=== PATIENT | female | born 1975 | race Hispanic/Latino ===

== ENCOUNTER 2024-03-28 09:38 | Emergency (ER) | payer SELFPAY ==
[~2024-03-28] VITALS: Ht 162.6 cm; Wt 102.5 kg
[~2024-03-28 09:38] MED LIST: PREN1TAB89 PO
--- NOTE | 2024-03-28 10:33 | EKG ---
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
--- NOTE | 2024-03-28 10:40 | ERN ---
ED Note History of Present Illness Stated Complaint: COUGH, PAINFUL RESP X 2 DAYS Chief Complaint: Cough Time Seen by MD: 10:05 Dictation: PATIENT IS A 49-YEAR-OLD FEMALE HERE WITH COMPLAINTS OF RIGHT LATERAL INFERIOR CHEST WALL PAIN TENDERNESS WORSE WITH COUGH OR INSPIRATION/PALPATION FOR 7-10 DAYS. NO FEVER NO CHILLS NO BACK PAIN DENIES ANY HISTORY OF CAD DIABETES HYPERTENSION. NO PRIMARY CARE DOCTOR AND HAS TAKEN NOTHING PRIOR TO ARRIVAL FOR PAIN. Allergies: Coded Allergies: No Known Allergies (Unverified Allergy, Unknown, 08/13/15) Home Meds Active Scripts Ibuprofen (Ibuprofen 800 mg Tab) 800 Mg Tab, 800 MG PO Q8H PRN for fever or pain, #30 TAB 0 Refills Prov:ISMAEL SIFUENTES NP 03/28/24 Benzonatate (Tessalon Perles) 100 Mg Cap, 1 CAP PO TID for cough for 10 Days, #30 CAP 0 Refills Prov:ISMAEL SIFUENTES NP 03/28/24 Methylprednisolone (Medrol) 4 Mg Tab.ds.pk, 1 TAB PO AD for 6 Days, #21 TAB 0 Refills 6 on day 1 then reduce by one tablet daily until gone Prov:ISMAEL SIFUENTES NP 03/28/24 Reported Medications Vit W-Ca,Fe,FA(<1 mg) ( Vitamins) 1 Each Tablet, 1 EACH PO DAILYLUNCH, TAB 08/13/15 Past Medical History Past Medical History: No Pertinent History Surgical History: Cholecystectomy History: Not Applicable : 7 Para: 6 Aborts: 1 RN Note Reviewed/Agreed w/PFSH: Yes Review of System Dictation CONSTITUTIONAL: NEGATIVE EXCEPT FOR HPI HEAD/FACE: NEGATIVE EXCEPT FOR HPI EENT: NEGATIVE EXCEPT FOR HPI RESPIRATORY: NEGATIVE EXCEPT FOR HPI RIGHT LATERAL INFERIOR CHEST WALL PAIN TENDERNESS WITH COUGH GASTROINTESTINAL/ABDOMINAL: NEGATIVE EXCEPT FOR HPI GENITOURINARY: NEGATIVE EXCEPT FOR HPI MUSCULOSKELETAL: NEGATIVE EXCEPT FOR HPI INTEGUMENTARY: NEGATIVE EXCEPT FOR HPI NEUROLOGICAL/PSYCH: NEGATIVE EXCEPT FOR HPI HEMATOLOGIC/LYMPHATIC: NEGATIVE EXCEPT FOR HPI ALL SYSTEMS NEGATIVE, EXCEPT NOTED ABOVE. 13 POINT REVIEW OF SYSTEMS ASSESSED AND ALL NEGATIVE EXCEPT FOR ABOVE. Initial Vital Sign VS Vital Signs Date Time Temp Pulse Resp B/P (MAP) Pulse Ox O2 Delivery O2 Flow Rate FiO2 03/28/24 09:40 99.3 110 20 137/86 99 Room Air 0 03/28/24 13:02 21 Physical Exam Dictation VITAL SIGNS REVIEWED GENERAL APPEARANCE: ALERT, ORIENTED X 3, MODERATE ACUTE DISTRESS, WELL DEVELOPED, NOURISHED. HEAD AND FACE: NON-TRAUMATIC. EYES: PERRL, PINK CONJUNCTIVAS, EYELID NO TRAUMA, ANTERIOR CHAMBER WITH ARCUS SENILIS. EARS: PINNAS INTACT AND NO SIGNS OF TRAUMA OR ERYTHEMA EAR CANALS CLEAR AND NO DISCHARGE TM NO ERYTHEMA NOSE: NO DISCHARGE, NO BLEEDING. OROPHARYNX: MOUTH NORMAL, TONGUE PINK, PHARYNX CLEAR,NO ERYTHEMA, TONSILS NO EXUDATES, NO ABSCESSES NOTED, MUCOUS MEMBRANE MOIST NECK: SUPPLE, NON-TENDER, NO THYROMEGALY, NO MASSES, NO JVD, NO BRUITS BREAST:DEFERRED CHEST: MODERATE RIGHT LATERAL INFERIOR CHEST WALL TENDERNESS WITH PALPATION OR INSPIRATION TENDERNESS, NO CREPITUS, NO PARADOXICAL MOVEMENT, NO RETRACTIONS LUNGS:CLEAR, WELL-VENTILATED, SYMMETRIC, NO RALES, NO WHEEZING, NO RHONCHI, NO STRIDOR, GOOD BREATH SOUNDS BILATERALLY HEART: REGULAR RATE, REGULAR RHYTHM, NO MURMUR, NO GALLOPS VASCULAR: NO PERIPHERAL EDEMA, ABDOMEN: SOFT, POSITIVE BOWEL SOUNDS, NONDISTENDED, NO GUARDING, NONTENDER, NO REBOUND, NO MASSES NO HEPATOMEGALY, NO SPLENOMEGALY, NO MARSHALL'S SIGN, NO HERNIAS. RECTAL: DEFERRED GENITAL: DEFERRED NEUROLOGICAL: NORMAL SPEECH, MOTOR FUNCTION INTACT, SENSORY FUNCTION INTACT MUSCULOSKELETAL: NECK NONTENDER, FULL RANGE OF MOTION, BACK NONTENDER, FULL RANGE OF MOTION, EXTREMITIES: NONTENDER, FULL RANGE OF MOTION SKIN: COLOR PINK, DRY, NO TURGOR, NO RASH, NO LACERATIONS, NO ABRASIONS, NO CONTUSIONS. LYMPHATIC: DEFERRED Results (Laboratory/Radiology) Laboratory/Radiology Laboratory Tests Test 03/28/24 10:51 Influenza Type A Antigen Negative For Type A Influenza Type B Antigen Negative For Type B SARS-CoV-2 Antigen (Rapid) PRESUMPTIVE NEGATIVE CHEST 1VW REASON: SOB COMPARISON: None. FINDINGS: Single view of the chest was obtained. Lungs are clear. Heart size is normal. There is no pulmonary vascular congestion. Mediastinum and bony thorax appear unremarkable. IMPRESSION: 1. Normal single view chest x-ray. Labs Reviewed?: Yes EKG Comment: EKG SINUS TACHYCARDIA/HEART RATE 103/LEFT ATRIAL ENLARGEMENT/NO ECTOPY ED Course ED Course Orders Procedure Category Date Status Time Influenza Type A & B, LAB 03/28/24 Complete Rapid 09:45 Covid19 (Sars Antigen LAB 03/28/24 Complete Rapid) 09:45 12 Lead Ekg Tracing- EKG 03/28/24 Resulted Technical 09:45 Chest 1vw RAD 03/28/24 Resulted 09:45 Methylprednisolone PHA 03/28/24 Complete Succ 125mg (Solu-Medr 11:00 Ketorolac PHA 03/28/24 Complete Tromethamine 30mg/Ml 11:00 Current Medications Medications (Trade) Dose Ordered Sig/Lizette Route PRN Reason Start Time Stop Time Status Last Admin Dose Admin Ketorolac Tromethamine (toRADol) 30 mg ONCE ONCE IVP 03/28/24 11:00 03/28/24 11:01 DC 03/28/24 11:05 Methylprednisolone Sodium Succinate (Solu-medROL 125MG) 125 mg ONCE ONCE IVP 03/28/24 11:00 03/28/24 11:01 DC 03/28/24 11:05 Vital Signs Date Time Temp Pulse Resp B/P (MAP) Pulse Ox O2 Delivery O2 Flow Rate FiO2 03/28/24 13:02 99.0 87 20 148/91 97 Room Air* 0 21 03/28/24 09:40 99.3 110 20 137/86 99 Room Air 0 1205, PATIENT STATES PAIN MARKEDLY RELIEVED AFTER TREATMENT. Medical Decision Making MDM MEDICAL DISCHARGE MAKING BASED ON CHEST X-RAY EKG AND SWABS ALL SWABS NEGATIVE CHEST X-RAYS CLEAR EKG NORMAL DISCHARGED HOME WITH COSTOCHONDRITIS AND COUGH. DX & DISP Disposition: Discharge Departure Impression: Primary Impression: Acute costochondritis Additional Impression: Viral URI with cough Condition: Stable Scripts Ibuprofen (Ibuprofen 800 mg Tab) 800 Mg Tab 800 MG PO Q8H PRN for fever or pain, #30 TAB 0 Refills Prov: ISMAEL SIFUENTES NP 03/28/24 Benzonatate (Tessalon Perles) 100 Mg Cap 1 CAP PO TID for cough for 10 Days, #30 CAP 0 Refills Prov: ISMAEL SIFUENTES NP 03/28/24 Methylprednisolone (Medrol) 4 Mg Tab.ds.pk 1 TAB PO AD for 6 Days, #21 TAB 0 Refills 6 on day 1 then reduce by one tablet daily until gone Prov: ISMAEL SIFUENTES CONSTRUCTION CRAFT LABORER 03/28/24 Additional Instructions: FOLLOW-UP WITH PRIMARY CARE PROVIDER IN 1 TO 2 DAYS. TAKE MEDICATIONS DIRECTED HERE IN THE EMERGENCY ROOM. OKAY TO CONTINUE HOME MEDICATIONS UNLESS OTHERWISE DISCUSSED DURING YOUR VISIT IN THE EMERGENCY ROOM TODAY. RETURN TO YOUR NEAREST EMERGENCY ROOM IF SYMPTOMS WORSEN OR IF THERE IS NO IMPROVEMENT. CALL 911 IF YOU NEED IMMEDIATE ASSISTANCE. TAKE TYLENOL OR MOTRIN JHER-SEB-EPQESYD NEEDED AND IF NO CONTRAINDICATIONS ARE PRESENT. INCREASE ORAL HYDRATION. A WOUND CULTURE OR URINE CULTURE WAS ORDERED HERE IN THE EMERGENCY ROOM DEPARTMENT PLEASE FOLLOW-UP WITH PRIMARY CARE PROVIDER AND ADVISE THEM TO GET REPEAT PORTS FROM OUR FACILITY. IF YOU HAD ANY CONI WRAP/SPLINTS THAT WERE APPLIED HERE, PLEASE DO NOT REMOVE THEM UNTIL YOU SEE YOUR PRIMARY CARE OR SPECIALTY. TAKE IBUPROFEN EVERY8 HOURS WITH FOOD FOR THE NEXT TWO DAYS. TAKE MEDROL DOSEPAK DIRECTED UNTIL GONE. FOLLOW UP WITH YOUR PRIMARY CARE DOCTOR. Referrals: RENETTA MONTESINOS MD (PCP) Time of Disposition: 12:02 I have reviewed the case, and I agree with, Diagnosis and Plan I performed a substantive portion of the visit. I have reviewed and personally made and approve the management plan that is documented in the notes by myself with JO/resident. I acknowledged full responsibility for the patient's managem ent plan. ISMAEL SIFUENTES NP Mar 28, 2024 10:40 JAIME HARRIS DO Mar 28, 2024 18:28
[2024-03-28] MEDS: ketOROlac 30MG VIAL (30MG/ML) IVP ONE (11:05)
[2024-03-28] MEDS: Solu-medROL 125MG VIAL IVP ONE (11:05)
[2024-03-28 11:21] LABS: COVID19 (SARS ANTIGEN RAPID) PRESUMPTIVE NEGATIVE (NEGATIVE)
[2024-03-28 11:22] LABS: INFLUENZA TYPE A Negative For Type A (NEGATIVE); INFLUENZA TYPE B Negative For Type B (NEGATIVE)
[2024-03-28] MEDS ORDERED: METH4TAB3 PO (12:03)
[2024-03-28] MEDS ORDERED: IBUP-2077 PO (12:03)
[2024-03-28] MEDS ORDERED: BENZ-39 PO (12:03)
[2024-03-28 13:02] VITALS: BP 148/91; PULSE 87; RESP 20; TEMP 98.9; O2SAT 97
== END 2024-03-28 13:01 | disposition home or self-care (01) ==
LOC: EDH 09:38
DX: M94.0 Chondrocostal junction syndrome [Tietze] (principal); J06.9 Acute upper respiratory infection, unspecified; B97.89 Other viral agents as the cause of diseases classified elsewhere; Z20.822 Contact with and (suspected) exposure to COVID-19; Z90.49 Acquired absence of other specified parts of digestive tract; Z79.899 Other long term (current) drug therapy
CPT/HCPCS: 99285; 96374; 71045; 96375; 87426; 87804 ×2; 93005; J2919; J1885

== ENCOUNTER 2024-06-19 13:03 | Emergency (ER) | payer SELFPAY ==
[~2024-06-19] VITALS: Ht 170.2 cm; Wt 82.1 kg
[~2024-06-19 13:03] MED LIST changes: +BENZ-39 PO; +IBUP-2077 PO; +METH4TAB3 PO
--- NOTE | 2024-06-19 13:37 | ERN ---
ED Note History of Present Illness Stated Complaint: SENT BY ISMAEL, BLOOD INFECTION Time Seen by MD: 13:08 Dictation: PATIENT IS A 49-YEAR-OLD FEMALE COMING IN TODAY FROM HER DOCTOR'S OFFICE WITH COMPLAINTS OF A COUGH AND FEVER AT NIGHT FOR THE LAST THREE WEEKS. SHE STATES THE COUGH IS NONPRODUCTIVE SHE DOES HAVE SOME BACK PAIN THAT IS THORACIC TO THE RIGHT. NO CHEST PAIN. NO NAUSEA NO VOMITING. Allergies: Coded Allergies: No Known Allergies (Unverified Allergy, Unknown, 08/13/15) Home Meds Active Scripts Albuterol Sulfate (Ventolin Hfa/Proventil Hfa/Proair Hfa) 90 Mcg Puff, 2 PUFF IH Q4H for WHEEZING, #1 INHALER 0 Refills Prov:ISMAEL SIFUENTES NP 06/19/24 Levofloxacin (Levaquin 750Mg Tabs) 750 Mg Tablet, 750 MG PO DAILY for 7 Days, #7 TAB 0 Refills Prov:ISMAEL SIFUENTES NP 06/19/24 Ibuprofen (Ibuprofen 800 mg Tab) 800 Mg Tab, 800 MG PO Q8H PRN for fever or pain, #30 TAB 0 Refills Prov:ISMAEL SIFUENTES NP 03/28/24 Benzonatate (Tessalon Perles) 100 Mg Cap, 1 CAP PO TID for cough for 10 Days, #30 CAP 0 Refills Prov:ISMAEL SIFUENTES NP 03/28/24 Methylprednisolone (Medrol) 4 Mg Tab.ds.pk, 1 TAB PO AD for 6 Days, #21 TAB 0 Refills 6 on day 1 then reduce by one tablet daily until gone Prov:ISMAEL SIFUENTES NP 03/28/24 Reported Medications Vit W-Ca,Fe,FA(<1 mg) ( Vitamins) 1 Each Tablet, 1 EACH PO DAILYLUNCH, TAB 08/13/15 Past Medical History Past Medical History: No Pertinent History Surgical History: Cholecystectomy History: Not Applicable : 7 Para: 6 Aborts: 1 RN Note Reviewed/Agreed w/PFSH: Yes Review of System Dictation CONSTITUTIONAL: NEGATIVE EXCEPT FOR HPI FEVER HEAD/FACE: NEGATIVE EXCEPT FOR HPI EENT: NEGATIVE EXCEPT FOR HPI RESPIRATORY: NEGATIVE EXCEPT FOR HPI COUGH GASTROINTESTINAL/ABDOMINAL: NEGATIVE EXCEPT FOR HPI GENITOURINARY: NEGATIVE EXCEPT FOR HPI MUSCULOSKELETAL: NEGATIVE EXCEPT FOR HPI INTEGUMENTARY: NEGATIVE EXCEPT FOR HPI NEUROLOGICAL/PSYCH: NEGATIVE EXCEPT FOR HPI HEMATOLOGIC/LYMPHATIC: NEGATIVE EXCEPT FOR HPI ALL SYSTEMS NEGATIVE, EXCEPT NOTED ABOVE. 13 POINT REVIEW OF SYSTEMS ASSESSED AND ALL NEGATIVE EXCEPT FOR ABOVE. Initial Vital Sign VS Vital Signs Date Time Temp Pulse Resp B/P (MAP) Pulse Ox O2 Delivery O2 Flow Rate FiO2 06/19/24 13:38 99.9 98 20 101/63 97 Room Air 0 06/19/24 13:52 21 Physical Exam Dictation VITAL SIGNS REVIEWED GENERAL APPEARANCE: ALERT, ORIENTED X 3, MILD ACUTE DISTRESS, WELL DEVELOPED, NOURISHED. HEAD AND FACE: NON-TRAUMATIC. EYES: PERRL, PINK CONJUNCTIVAS, EYELID NO TRAUMA, ANTERIOR CHAMBER WITH ARCUS SENILIS. EARS: PINNAS INTACT AND NO SIGNS OF TRAUMA OR ERYTHEMA EAR CANALS CLEAR AND NO DISCHARGE TM NO ERYTHEMA NOSE: NO DISCHARGE, NO BLEEDING. OROPHARYNX: MOUTH NORMAL, TONGUE PINK, PHARYNX CLEAR,NO ERYTHEMA, TONSILS NO EXUDATES, NO ABSCESSES NOTED, MUCOUS MEMBRANE MOIST NECK: SUPPLE, NON-TENDER, NO THYROMEGALY, NO MASSES, NO JVD, NO BRUITS BREAST:DEFERRED CHEST:NO TENDERNESS, NO CREPITUS, NO PARADOXICAL MOVEMENT, NO RETRACTIONS LUNGS:CLEAR, WELL-VENTILATED, SYMMETRIC, NO RALES, NO TACHYPNEA/BILATERAL BREATH SOUNDS CLEAR TO AUSCULTATION DIMINISHED IN BASES HEART: REGULAR RATE, REGULAR RHYTHM, NO MURMUR, NO GALLOPS VASCULAR: NO PERIPHERAL EDEMA, ABDOMEN: SOFT, POSITIVE BOWEL SOUNDS, NONDISTENDED, NO GUARDING, NONTENDER, NO REBOUND, NO MASSES NO HEPATOMEGALY, NO SPLENOMEGALY, NO MARSHALL'S SIGN, NO HERNIAS. RECTAL: DEFERRED GENITAL: DEFERRED NEUROLOGICAL: NORMAL SPEECH, MOTOR FUNCTION INTACT, SENSORY FUNCTION INTACT MUSCULOSKELETAL: NECK NONTENDER, FULL RANGE OF MOTION, BACK NONTENDER, FULL RANGE OF MOTION, EXTREMITIES: NONTENDER, FULL RANGE OF MOTION SKIN: COLOR PINK, DRY, NO TURGOR, NO RASH, NO LACERATIONS, NO ABRASIONS, NO CONTUSIONS. LYMPHATIC: DEFERRED Results (Laboratory/Radiology) Laboratory/Radiology BILATERAL PNEUMONITIS ON CHEST X-RAY. Labs Reviewed?: Yes ED Course ED Course 170/PATIENT WILL BE DISCHARGED HOME WITH BILATERAL PNEUMONITIS. SHE WILL BE DISCHARGED HOME WITH LEVAQUIN 750 P.O. DAILY FOR FIVE DAYS. SHE WILL BE GIVEN ALBUTEROL INHALER AND TOLD TO SEE HER PRIMARY CARE DOCTOR Medical Decision Making MDM MDM: DIFFERENTIAL DIAGNOSIS: PNEUMONIA/BRONCHITIS/ELECTROLYTE IMBALANCE/ RATIONALE: TESTS CONSIDERED AND ORDERED SECONDARY TO SHARED DECISION MAKING INCLUDE: DEHYDRATION/SEPSIS CHEST X-RAY//LABS PREVIOUS OUTSIDE RECORDS REVIEWED: OLD ER VISITS. RISK OF COMPLICATION AND/OR MORBIDITY OR MORTALITY OF PATIENT MANAGEMENT: NONE MEDICATIONS-PER MEDICATION RECONCILIATION NEED FOR HOSPITALIZATION: PATIENT DOES NOT MEET CRITERIA FOR HOSPITALIZATION. WE WILL TREAT PATIENT WITH ROCEPHIN AND LEVAQUIN, DISCHARGED HOME WITH COMMUNITY-ACQUIRED PNEUMONIA NEED FOR EMERGENCY MAJOR/MINOR SURGERY: NO THERE ARE NO SOCIAL CONCERNS WITH THIS PATIENT. PRESCRIPTION DRUG MANAGEMENT LEVAQUIN 750/ALBUTEROL PRESCRIPTIONS WILL INCLUDE SYMPTOMATIC CARE PATIENT'S PRIOR EXTERNAL MEDICAL RECORDS FROM OTHER ER VISITS WERE REVIEWED BY ME INDICATED. PRIOR TESTING AND RESULTS FROM PREVIOUS VISITS WERE REVIEWED. PRIOR TESTS WERE TAKEN INTO ACCOUNT WITH MEDICAL DECISION MAKING AND RESOURCE UTILIZATION, INDEPENDENT HISTORIAN/HISTORIANS WERE USED TO OBTAIN COMPLETE MEDICAL HISTORY. I INDEPENDENTLY INTERPRETED THE TEST THAT WERE PERFORMED, RESULTS WERE REVIEWED BY ME AND CONSIDERED FINDINGS ON RADIOLOGY IF ORDERED. MEDICAL MANAGEMENT AND EXAMINATION INTERPRETATION DISCUSSIONS WERE HAD BY ME WITH OTHER QUALIFIED HEALTHCARE PROFESSIONALS INDICATED FOR THE PATIENT'S CARE. DX & DISP Disposition: Discharge Departure Impression: Primary Impression: Pneumonitis Additional Impressions: Uncontrolled diabetes mellitus, Hyponatremia Condition: Stable Scripts Albuterol Sulfate (Ventolin Hfa/Proventil Hfa/Proair Hfa) 90 Mcg Puff 2 PUFF IH Q4H for WHEEZING, #1 INHALER 0 Refills Prov: ISMAEL SIFUENTES ISOTOPE TECHNOLOGIST 06/19/24 Levofloxacin (Levaquin 750Mg Tabs) 750 Mg Tablet 750 MG PO DAILY for 7 Days, #7 TAB 0 Refills Prov: ISMAEL SIFUENTES ISOTOPE TECHNOLOGIST 06/19/24 Additional Instructions: FOLLOW-UP WITH PRIMARY CARE PROVIDER IN 1 TO 2 DAYS. TAKE MEDICATIONS DIRECTED HERE IN THE EMERGENCY ROOM. OKAY TO CONTINUE HOME MEDICATIONS UNLESS OTHERWISE DISCUSSED DURING YOUR VISIT IN THE EMERGENCY ROOM TODAY. RETURN TO YOUR NEAREST EMERGENCY ROOM IF SYMPTOMS WORSEN OR IF THERE IS NO IMPROVEMENT. CALL 911 IF YOU NEED IMMEDIATE ASSISTANCE. TAKE TYLENOL OR MOTRIN [id number] NEEDED AND IF NO CONTRAINDICATIONS ARE PRESENT. INCREASE ORAL HYDRATION. A WOUND CULTURE OR URINE CULTURE WAS ORDERED HERE IN THE EMERGENCY ROOM DEPARTMENT PLEASE FOLLOW-UP WITH PRIMARY CARE PROVIDER AND ADVISE THEM TO GET REPEAT PORTS FROM OUR FACILITY. IF YOU HAD ANY CONI WRAP/SPLINTS THAT WERE APPLIED HERE, PLEASE DO NOT REMOVE THEM UNTIL YOU SEE YOUR PRIMARY CARE OR SPECIALTY. TAKE LEVAQUIN DIRECTED UNTIL GONE. , USE ALBUTEROL INHALER EVERY4 HOURS WHILE AWAKE FOR THE NEXT THREE DAYS. INCREASE YOUR FLUID INTAKE. Referrals: SELF,REFERRAL (PCP) Time of Disposition: 17:06 I have reviewed the case, and I agree with, Diagnosis and Plan I performed the substantive portion of the visit. I have reviewed and personally made and approve the management plan that is documented in the notes by myself or the JO. I acknowledge full responsibility for the patient's management plan. ISMAEL SIFUENTES NP Jun 19, 2024 13:37 CLYED KUMAR MD Jun 22, 2024 18:42
[2024-06-19 13:52] VITALS: BP 101/63; PULSE 98; RESP 20; TEMP 99.8; O2SAT 97
[2024-06-19 14:16] LABS: APPEARANCE,URINE CLEAR (CLEAR); BILIRUBIN,URINE NEGATIVE (NEGATIVE); COLOR,URINE YELLOW (YELLOW); GLUCOSE, URINE (UA) >=1000 mg/dL (NEGATIVE); KETONES,URINE 5 mg/dL (NEGATIVE); LEUKOCYTE ESTERASE ,URINE 25 Leu/uL (NEGATIVE); NITRATE,URINE NEGATIVE (NEGATIVE); OCCULT BLOOD,URINE SMALL (NEGATIVE); PH,URINE 5.5 (5.0-8.0); PROTEIN,URINE 20 mg/dL (NEGATIVE); UROBILINOGEN,URINE 3 mg/dL (0.2-1.0)
[2024-06-19 14:19] LABS: ADD UA MICROSCOPIC YES
[2024-06-19 14:22] LABS: BASOPHILS # (AUTO) 0.03 K/uL (0.00-0.20); BASOPHILS % (AUTO) 0.2 % (0.0-5.0); EOSINOPHILS # (AUTO) 0.27 K/uL (0.00-0.70); HEMATOCRIT 31.8 % (36-48); IMMATURE GRANULOCYTE ABSOLUTE 0.06 K/uL (0-1); LYMPHOCYTES # (AUTO) 1.5 K/uL (1.0-4.8); LYMPHOCYTES % (AUTO) 10.7 % (21.0-51.0); MEAN CORPUSCULAR HEMOGLOBIN 23.2 pg (27.0-33.0); MEAN CORPUSCULAR HGB CONC 29.9 g/dL (32.0-36.0); MEAN CORPUSCULAR VOLUME 77.8 fL (79-99); MONOCYTES # (AUTO) 0.5 K/uL (0.1-1.0); MONOCYTES % (AUTO) 3.3 % (3.0-13.0); NEUTROPHILS # (AUTO) 11.5 K/uL (1.8-7.7); NEUTROPHILS % (AUTO) 83.4 % (40.0-77.0); PLATELET COUNT (AUTO) 546 K/uL (130-400); RED BLOOD CELL COUNT(AUTO) 4.09 MIL/uL (4.00-5.50); RED CELL DISTRIBUTION WIDTH 14.8 % (11.0-15.5); WHITE BLOOD COUNT (AUTO) 13.8 K/uL (4.8-10.8)
[2024-06-19 14:23] LABS: BACTERIA,URINE RARE /HPF (None Seen); MUCUS,URINE RARE LPF (None Seen); SQUAMOUS EPITHELIAL CELL,UR FEW /HPF (0-2); YEAST,URINE BUDDING RARE /HPF (None Seen)
[2024-06-19 14:32] LABS: CREATININE 0.9 mg/dL (0.5-1.0); POTASSIUM 3.6 mmol/L (3.5-5.1)
--- NOTE | 2024-06-19 16:50 | HMCIMG ---
CHEST 1VW HISTORY: Cough COMPARISON: 03/28/2024 FINDINGS: A frontal projection of the chest was obtained. Mild bilateral pulmonary infiltrates are seen may be related to mild pulmonary vascular congestion with possible superimposed pneumonitis. The heart is normal in size. No evidence of aortic calcification is seen. IMPRESSION: 1. Mild bilateral pulmonary infiltrates are seen may be related to mild pulmonary vascular congestion with possible superimposed pneumonitis.
[2024-06-19] MEDS ORDERED: LEVO750T68 PO (17:07)
[2024-06-19] MEDS ORDERED: ALBUHFA IH (17:07)
[2024-06-19] MEDS: cefTRIAXone 1G VIAL IVP ONE (17:22)
[2024-06-19] MEDS: levoFLOXacin 500 MG TABLET PO SCH (17:22)
== END 2024-06-19 17:27 | disposition home or self-care (01) ==
LOC: EDH 13:03
DX: J18.9 Pneumonia, unspecified organism (principal); Z20.822 Contact with and (suspected) exposure to COVID-19; E11.65 Type 2 diabetes mellitus with hyperglycemia; E87.1 Hypo-osmolality and hyponatremia; Z79.899 Other long term (current) drug therapy; Z90.49 Acquired absence of other specified parts of digestive tract
CPT/HCPCS: 99284; 96374; 71045; 87426; 80048; 85025; 87040 ×2; 87086; 83605; 81001; 36415; J0696

== ENCOUNTER 2024-08-08 18:21 | Inpatient (IN) | payer SELFPAY ==
[~2024-08-08] VITALS: Ht 162.6 cm; Wt 92.3 kg
[~2024-08-08 18:21] MED LIST changes: +ALBUHFA IH; +LEVO750T68 PO
--- NOTE | 2024-08-08 18:44 | EKG ---
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
--- NOTE | 2024-08-08 18:59 | ERN ---
ED Note History of Present Illness Stated Complaint: BACK PAIN Chief Complaint: Abscess Time Seen by MD: 18:22 Time Seen by Midlevel: 18:22 Dictation: The patient is a 49-year-old female with a history of cholecystectomy who presents to the emergency department with complaints of right flank pain with mass onset eight days ago. Patient also reports that she has been having a dry cough. Denies any fevers, nausea or vomiting, urinary discomfort or hematuria. Allergies: Coded Allergies: No Known Allergies (Unverified Allergy, Unknown, 08/13/15) Home Meds Active Scripts Albuterol Sulfate (Ventolin Hfa/Proventil Hfa/Proair Hfa) 90 Mcg Puff, 2 PUFF IH Q4H for WHEEZING, #1 INHALER 0 Refills Prov:ISMAEL SIFUENTES NP 06/19/24 Levofloxacin (Levaquin 750Mg Tabs) 750 Mg Tablet, 750 MG PO DAILY for 7 Days, #7 TAB 0 Refills Prov:ISMAEL SIFUENTES NP 06/19/24 Ibuprofen (Ibuprofen 800 mg Tab) 800 Mg Tab, 800 MG PO Q8H PRN for fever or pain, #30 TAB 0 Refills Prov:ISMAEL SIFUENTES NP 03/28/24 Benzonatate (Tessalon Perles) 100 Mg Cap, 1 CAP PO TID for cough for 10 Days, #30 CAP 0 Refills Prov:ISMAEL SIFUENTES NP 03/28/24 Methylprednisolone (Medrol) 4 Mg Tab.ds.pk, 1 TAB PO AD for 6 Days, #21 TAB 0 Refills 6 on day 1 then reduce by one tablet daily until gone Prov:ISMAEL SIFUENTES NP 03/28/24 Reported Medications Vit W-Ca,Fe,FA(<1 mg) ( Vitamins) 1 Each Tablet, 1 EACH PO DAILYLUNCH, TAB 08/13/15 Past Medical History Past Medical History: No Pertinent History Surgical History: Cholecystectomy History: Not Applicable : 7 Para: 6 Aborts: 1 RN Note Reviewed/Agreed w/PFSH: Yes Review of System Dictation Constitutional: Negative for fever,chills, and weight loss Eyes: Negative for injury, pain,redness, and discharge ENT: Negative for injury,pain or swelling Cardiovascular: Negative for chest pain, palpitations, and edema Respiratory: Negative for shortness of breath, and wheezing, positive for cough Abdomen/GI: Negative for abdominal pain, nausea, vomiting, diarrhea, and constipation Back: Negative for injury and pain positive for right flank pain : Negative for injury, bleeding and discharge MS/Extremity: Negative for injury and deformity Skin: Negative for rash, and discoloration Neuro: Negative for headache, weakness, numbness, tingling, and seizure Psych: Negative for suicide ideation, homicidal ideation, and hallucinations Initial Vital Sign VS Vital Signs Date Time Temp Pulse Resp B/P (MAP) Pulse Ox O2 Delivery O2 Flow Rate FiO2 08/08/24 18:25 99.9 132 20 155/92 99 Room Air 0 08/08/24 20:00 21 Physical Exam Dictation Vital Signs reviewed General Appearance: Alert, oriented x 3, no acute distress, well developed, nourished. Head and Face: non-traumatic. Eyes: PERRL, pink conjunctivas, eyelid no trauma, anterior chamber with arcus senilis. Ears: Pinnas intact and no signs of trauma or erythema ear canals clear and no discharge TM no erythema Nose: No discharge, no bleeding. Oropharynx: Mouth normal, tongue pink. pharynx clear,no erythema, tonsils no exudates, no abscesses noted, mucous membrane moist Neck: Supple, non-tender, no thyromegaly, no masses, no JVD, no bruits Breast:Deferred Chest:No tenderness, no crepitus, no paradoxical movement, no retractions Lungs:Clear, well-ventilated, symmetric, no rales, no wheezing, no rhonchi, no stridor, good breath sounds bilaterally Heart: Regular rate, regular rhythm, no murmur, no gallops Vascular: no peripheral edema, Abdomen: Soft, positive bowel sounds, nondistended, no guarding, nontender, no rebound, no masses no hepatomegaly, no splenomegaly, no London's sign, no hernias. Right flank mass Rectal: Deferred Genital: Deferred Neurological: Normal speech, motor function intact, sensory function intact Musculoskeletal: Neck nontender, full range of motion, back nontender, full range of motion, Extremities: nontender, full range of motion Skin: Color pink, dry, no turgor, no rash, no lacerations, no abrasions, no contusions. Lymphatic: Deferred Results (Laboratory/Radiology) Laboratory/Radiology Laboratory Tests Test 08/08/24 18:52 08/08/24 18:59 08/08/24 20:04 White Blood Count 13.9 K/uL (4.8-10.8) H Red Blood Count 4.10 MIL/uL (4.00-5.50) Hemoglobin 9.6 g/dL (12.0-16.0) L Hematocrit 31.2 % (36-48) L Mean Corpuscular Volume 76.1 fL (79-99) L Mean Corpuscular Hemoglobin 23.4 pg (27.0-33.0) L Mean Corpuscular Hemoglobin Concent 30.8 g/dL (32.0-36.0) L Red Cell Distribution Width 15.9 % (11.0-15.5) H Platelet Count 487 K/uL (130-400) H Mean Platelet Volume 8.5 fL (7.5-10.5) Immature Granulocyte % (Auto) 0.7 % (0-1) Neutrophils (%) (Auto) 82.2 % (40.0-77.0) H Lymphocytes (%) (Auto) 11.7 % (21.0-51.0) L Monocytes (%) (Auto) 3.9 % (3.0-13.0) Eosinophils (%) (Auto) 1.1 % (0.0-8.0) Basophils (%) (Auto) 0.4 % (0.0-5.0) Neutrophils # (Auto) 11.5 K/uL (1.8-7.7) H Lymphocytes # (Auto) 1.6 K/uL (1.0-4.8) Monocytes # (Auto) 0.6 K/uL (0.1-1.0) Eosinophils # (Auto) 0.16 K/uL (0.00-0.70) Basophils # (Auto) 0.05 K/uL (0.00-0.20) Absolute Immature Granulocyte (auto 0.10 K/uL (0-1) Nucleated Red Blood Cells 0.0 % (0.0-0.19) Red Blood Cell Morphology See comments Sodium Level 132 mmol/L (136-145) L Potassium Level 2.9 mmol/L (3.5-5.1) *L Chloride Level 95 mmol/L (101-111) L Carbon Dioxide Level 29 mmol/L (21-32) Blood Urea Nitrogen 8 mg/dL (7-18) Creatinine 1.0 mg/dL (0.5-1.0) Glomerular Filtration Rate Calc 69 mL/min (>90) Random Glucose 325 mg/dL (70-105) H Lactic Acid Level 1.5 mmol/L (0.8-2.5) Total Calcium 8.5 mg/dL (8.5-10.1) Magnesium Level 1.70 mg/dL (1.80-2.40) L Total Bilirubin 0.4 mg/dL (0.2-1.0) Direct Bilirubin 0.1 mg/dL (0.0-0.3) Aspartate Amino Transf (AST/SGOT) 8 U/L (10-37) L Alanine Aminotransferase (ALT/SGPT) 11 U/L (12-78) L Alkaline Phosphatase 117 U/L (50-136) Total Creatine Kinase 72 U/L (21-232) Troponin I High Sensitivity < 4.0 ng/L (4-50) L B-Type Natriuretic Peptide 25 pg/mL (0-100) Total Protein 8.2 g/dL (6.0-8.3) Albumin 2.6 g/dL (3.5-5.0) L Serum Test, Qualitative NEGATIVE (NEGATIVE) Influenza Type A Antigen Negative For Type A Influenza Type B Antigen Negative For Type B SARS-CoV-2 Antigen (Rapid) PRESUMPTIVE NEGATIVE Urine Color LIGHT-YELLOW (YELLOW) Urine Appearance CLEAR (CLEAR) Urine pH 6.0 (5.0-8.0) Urine Specific [place] 1.021 (1.001-1.031) Urine Protein NEGATIVE mg/dL (NEGATIVE) Urine Glucose (UA) >=1000 mg/dL (NEGATIVE) H Urine Ketones NEGATIVE mg/dL (NEGATIVE) Urine Occult Blood +- (TRACE) (NEGATIVE) H Urine Nitrate NEGATIVE (NEGATIVE) Urine Bilirubin NEGATIVE mg/dL (NEGATIVE) Urine Urobilinogen 0.2 mg/dL (0.2-1.0) Urine Leukocyte Esterase 75 Ruf[place]/uL (NEGATIVE) H Urine RBC 2-5 /HPF (0-1) H Urine WBC 6-10 /HPF (0-1) H Urine Squamous Epithelial Cells FEW /HPF (0-2) Urine Bacteria None /HPF (None Seen) REASON: cough ORDERING PHYSICIAN: KYMBERLY LOPEZ DROSOPHERE OPERATOR PROCEDURE: CXR1VW - CHEST 1VW CHEST 1VW HISTORY: Cough COMPARISON: None FINDINGS: A frontal projection of the chest was obtained. No acute pulmonary infiltrates is seen. The heart is borderline enlarged. Prominent interstitial markings are seen. Degenerative changes are seen. IMPRESSION: 1. No acute pulmonary infiltrate is seen. REASON: rigth flank pain, mass ORDERING PHYSICIAN: KYMBERLY LOPEZ DROSOPHERE OPERATOR PROCEDURE: ABD PEL W - CT ABDOMEN/PELVIS W/CONTRAST CT ABDOMEN/PELVIS W/CONTRAST HISTORY: Right flank pain, mass TECHNIQUE: CT ABDOMEN/PELVIS W/CONTRAST Omnipaque contrast was used. Oral contrast was not given. Coronal and sagittal reformats were obtained. CT was performed with one or more of the following dose reduction techniques: Automated exposure control, adjustment of the mA and/or kV according to the patient's size, or use of the iterative reconstruction technique. Comparison: None. FINDINGS: Small right pleural effusion is seen with right lower lobe atelectasis. There is mild hepatic steatosis. Gallstones are seen. The spleen, pancreas, and adrenal glands are within normal limits. No hydronephrosis. The urinary bladder is partially distended. 5.8 x 3.8 cm complex septated lesion seen in the posterior mid/upper pole of the right kidney extending to the posterior perihepatic space which may represent cystic mass, abscess versus hematoma. Correlate clinically. Subcutaneous stranding is seen in the right flank area. No bowel obstruction identified. Appendix is normal in caliber. Visualized aorta is normal in caliber. No acute osseous findings. IMPRESSION: 5.8 x 3.8 cm complex septated lesion seen in the posterior mid/upper pole of the right kidney extending to the posterior perihepatic space which may represent cystic mass, abscess versus hematoma. Correlate clinically. Subcutaneous stranding is seen in the right flank area. Labs Reviewed?: Yes EKG: (+) rhythm (Sinus tachycardia) EKG Comment: Date:08/08/2024 Time:1829 Ventricular rate:130 [place] interval:161 QRS duration:369 QT/QTc:292 EKG interpretation: Sinus tachycardia, borderline diffuse T-wave abnormalities Reviewed by ED Attending no STEMI ED Course ED Course Orders Procedure Category Date Status Time 12 Lead Ekg Tracing- EKG 08/08/24 Complete Technical 18:29 Cbc With Differential LAB 08/08/24 Complete 18:34 B-Type Natriuretic LAB 08/08/24 Complete Peptide 18:34 Chest 1vw RAD 08/08/24 Resulted 18:34 Magnesium LAB 08/08/24 Complete 18:34 Urinalysis Profile LAB 08/08/24 Complete 18:34 Basic Metabolic Panel LAB 08/08/24 Complete 18:34 Hepatic Function Panel LAB 08/08/24 Complete 18:34 Covid19 (Sars Antigen LAB 08/08/24 Complete Rapid) 18:34 Influenza Type A & B, LAB 08/08/24 Complete Rapid 18:34 Testing, LAB 08/08/24 Complete Serum Hcg 18:34 Blood Cult LUCI 08/08/24 In Process 18:34 0.9%Nacl 1000ml (Ns PHA 08/08/24 Complete 1000ml) 19:00 Lactic Acid LAB 08/08/24 Complete 18:34 Cardiac Panel LAB 08/08/24 Complete 18:52 Zosyn 3.375gm+Ns 50ml PHA 08/08/24 Complete (Zosyn 3.375gm+Ns 19:19 Magnesium Oxide PHA 08/08/24 Complete (Mag-Ox) 20:00 Ct Abdomen/Pelvis CT 08/08/24 Resulted W/Contrast 19:47 Potassium Bicarb/Cit PHA 08/08/24 Complete Ac 25meq (K-Lyte Ta 20:00 Iohexol (Omnipaque) PHA 08/08/24 Complete 20:04 Culture Urine LUCI 08/08/24 In Process 20:28 Acetaminophen 500mg PHA 08/08/24 Complete Tab (Tylenol 500mg T 21:30 Admit Orders ADM 08/08/24 Transmitted 21:27 Edm Admit Bridge Order ADM 08/08/24 Transmitted 21:27 Current Medications Medications (Trade) Dose Ordered Sig/Lizette Route PRN Reason Start Time Stop Time Status Last Admin Dose Admin Acetaminophen (TYLenol 500MG TAB) 1,000 mg ONCE ONCE PO 08/08/24 21:30 08/08/24 21:31 DC Iohexol (Omnipaque) 75 ml STK-MED ONCE IV 08/08/24 20:04 08/08/24 20:05 DC Magnesium Oxide (Mag-Ox) 400 mg ONCE ONCE PO 08/08/24 20:00 08/08/24 20:01 DC 08/08/24 19:53 Piperacillin Sod/ Tazobactam Sod 50 ml @ 200 mls/hr STAT STAT IVPB 08/08/24 19:19 08/08/24 19:33 DC 08/08/24 19:52 Potassium Bicarbonate (K-Lyte Tablet Eff 25 Meq Tablet.eff) 50 meq ONCE ONCE PO 08/08/24 20:00 08/08/24 20:01 DC 08/08/24 19:53 Sodium Chloride 2,291 ml @ 763.666 mls/hr ONCE ONCE IV 08/08/24 19:00 08/08/24 21:59 DC 08/08/24 19:01 Vital Signs Date Time Temp Pulse Resp B/P (MAP) Pulse Ox O2 Delivery O2 Flow Rate FiO2 08/08/24 21:15 100.0 119 20 132/76 99 Room Air* 0 21 08/08/24 20:00 99.9 130 20 135/68 96 Room Air* 0 21 08/08/24 18:25 99.9 132 20 155/92 99 Room Air 0 Medical Decision Making MDM MDM: The patient is a 49-year-old female with a history of cholecystectomy who presents to the emergency department with complaints of right flank pain with mass onset eight days ago. Patient also reports that she has been having a dry cough. Denies any fevers, nausea or vomiting, urinary discomfort or hematuria. CBC showed leukocytosis, mild microcytic anemia, unchanged from previous visits, chemistry showed mild hyponatremia, hypokalemia, hypochloremia, blood glucose of 325, hypomagnesemia, negative troponins, urinalysis positive for leukocyte laurent rase, serology negative. CT abdomen pelvis revealed a 5.8 x 3.8 cm complex septated lesion seen in the posterior mid upper pole of the right kidney extending to the posterior jassi hepatic space which may represent cystic mass, abscess, versus hematoma. Subcutaneous stranding seen in the right flank area. Chest x-ray showed no acute pathology. Patient's electrolytes were replaced and started on Zosyn for sepsis. Fluids were given. Patient will be admitted for further treatment and evaluation. Differential diagnosis: Sepsis, abscess, dehydration, pyelonephritis, pneumonia Comorbidities: Cholecystectomy Tests considered and not ordered secondary to shared decision making include: none Previous outside records reviewed: none Risk of complication and/or morbidity or mortality of patient management: The patient meets criteria for admission. Need for emergency major/minor surgery: No There are no social concerns with this patient. I independently interpreted the tests I ordered (labs, urinalysis, etc.). I discussed the case with the hospitalist for admission. [facility] who accepts admission I discussed the case with the following specialists: none. Historian: pateint. I independently interpreted imaging studies and EKGs that I ordered (US, CT, XR, EKG, etc.). External chart review: none. Medical management and examination interpretation discussions were had by me with other qualified healthcare professionals as indicated for the patient's care. DX & DISP Disposition: Inpatient Decision to Admit Date: Aug 08, 2024 Decision to Admit Time: 21:27 Departure Impression: Primary Impression: Sepsis Additional Impressions: Renal mass, right, Leukocytosis, Hyperglycemia, Hypokalemia, Hypomagnesemia, Hyponatremia Condition: Stable Referrals: SELF,REFERRAL (PCP) I have reviewed the case, and I agree with, Diagnosis and Plan KYMBERLY LOPEZ [facility] Aug 08, 2024 18:59
[2024-08-08] MEDS: [UNRECOGNIZED DRUG - OTHER] IV ONE (19:01)
[2024-08-08 19:06] LABS: BASOPHILS # (AUTO) 0.05 K/uL (0.00-0.20); BASOPHILS % (AUTO) 0.4 % (0.0-5.0); EOSINOPHILS # (AUTO) 0.16 K/uL (0.00-0.70); EOSINOPHILS % (AUTO) 1.1 % (0.0-8.0); HEMATOCRIT 31.2 % (36-48); LYMPHOCYTES # (AUTO) 1.6 K/uL (1.0-4.8); LYMPHOCYTES % (AUTO) 11.7 % (21.0-51.0); MEAN CORPUSCULAR HEMOGLOBIN 23.4 pg (27.0-33.0); MEAN CORPUSCULAR HGB CONC 30.8 g/dL (32.0-36.0); MEAN CORPUSCULAR VOLUME 76.1 fL (79-99); MONOCYTES # (AUTO) 0.6 K/uL (0.1-1.0); MONOCYTES % (AUTO) 3.9 % (3.0-13.0); NEUTROPHILS # (AUTO) 11.5 K/uL (1.8-7.7); NEUTROPHILS % (AUTO) 82.2 % (40.0-77.0); PLATELET COUNT (AUTO) 487 K/uL (130-400); RED CELL DISTRIBUTION WIDTH 15.9 % (11.0-15.5); WHITE BLOOD COUNT (AUTO) 13.9 K/uL (4.8-10.8)
[2024-08-08 19:35] LABS: B-TYPE NATRIURETIC PEPTIDE 25 pg/mL (0-100)
[2024-08-08 19:40] LABS: ALANINE AMINOTRANSFERASE 11 U/L (12-78); ALBUMIN 2.6 g/dL (3.5-5.0); ASPARTATE AMINOTRANSFERASE 8 U/L (10-37); BILIRUBIN,DIRECT 0.1 mg/dL (0.0-0.3); BILIRUBIN,TOTAL 0.4 mg/dL (0.2-1.0); CARBON DIOXIDE 29 mmol/L (21-32); CHLORIDE 95 mmol/L (101-111); CREATINE KINASE, TOTAL 72 U/L (21-232); GLOMERULAR FILTR. RATE CALC 69 mL/min (>90); GLUCOSE,RANDOM 325 mg/dL (70-105); SODIUM SERUM 132 mmol/L (136-145); TOTAL PROTEIN, SERUM 8.2 g/dL (6.0-8.3); UREA NITROGEN, BLOOD 8 mg/dL (7-18)
--- NOTE | 2024-08-08 19:44 | HMCIMG ---
CHEST 1VW HISTORY: Cough COMPARISON: None FINDINGS: A frontal projection of the chest was obtained. No acute pulmonary infiltrates is seen. The heart is borderline enlarged. Prominent interstitial markings are seen. Degenerative changes are seen. IMPRESSION: 1. No acute pulmonary infiltrate is seen.
[2024-08-08 19:45] LABS: POTASSIUM 2.9 mmol/L (3.5-5.1)
[2024-08-08 19:46] LABS: INFLUENZA TYPE A Negative For Type A (NEGATIVE); INFLUENZA TYPE B Negative For Type B (NEGATIVE)
[2024-08-08 19:47] LABS: COVID19 (SARS ANTIGEN RAPID) PRESUMPTIVE NEGATIVE (NEGATIVE)
[2024-08-08] MEDS: ZOSYN 3.375GM+NS 50ML 50 ML IVPB STA (19:52)
[2024-08-08] MEDS: MAGNESIUM OXIDE 400 MG TABLET PO ONE (19:53)
[2024-08-08] MEDS: PoTASSium BIcarbonate/CIT AC 25 MEQ TABLET.EFF PO ONE (19:53)
[2024-08-08] MEDS ORDERED: IOHEXOL-350 75 ML VIAL IV ONE (20:04)
[2024-08-08 20:27] LABS: APPEARANCE,URINE CLEAR (CLEAR); BILIRUBIN,URINE NEGATIVE (NEGATIVE); COLOR,URINE LIGHT-YELLOW (YELLOW); GLUCOSE, URINE (UA) >=1000 mg/dL (NEGATIVE); KETONES,URINE NEGATIVE (NEGATIVE); LEUKOCYTE ESTERASE ,URINE 75 Leu/uL (NEGATIVE); NITRATE,URINE NEGATIVE (NEGATIVE); PROTEIN,URINE NEGATIVE (NEGATIVE); UROBILINOGEN,URINE 0.2 mg/dL (0.2-1.0)
[2024-08-08 20:28] LABS: ADD UA MICROSCOPIC YES
[2024-08-08 20:39] LABS: MUCUS,URINE RARE LPF (None Seen); SQUAMOUS EPITHELIAL CELL,UR FEW /HPF (0-2)
--- NOTE | 2024-08-08 21:13 | HMCIMG ---
CT ABDOMEN/PELVIS W/CONTRAST HISTORY: Right flank pain, mass TECHNIQUE: CT ABDOMEN/PELVIS W/CONTRAST Omnipaque contrast was used. Oral contrast was not given. Coronal and sagittal reformats were obtained. CT was performed with one or more of the following dose reduction techniques: Automated exposure control, adjustment of the mA and/or kV according to the patient's size, or use of the iterative reconstruction technique. Comparison: None. FINDINGS: Small right pleural effusion is seen with right lower lobe atelectasis. There is mild hepatic steatosis. Gallstones are seen. The spleen, pancreas, and adrenal glands are within normal limits. No hydronephrosis. The urinary bladder is partially distended. 5.8 x 3.8 cm complex septated lesion seen in the posterior mid/upper pole of the right kidney extending to the posterior perihepatic space which may represent cystic mass, abscess versus hematoma. Correlate clinically. Subcutaneous stranding is seen in the right flank area. No bowel obstruction identified. Appendix is normal in caliber. Visualized aorta is normal in caliber. No acute osseous findings. IMPRESSION: 5.8 x 3.8 cm complex septated lesion seen in the posterior mid/upper pole of the right kidney extending to the posterior perihepatic space which may represent cystic mass, abscess versus hematoma. Correlate clinically. Subcutaneous stranding is seen in the right flank area.
--- NOTE | 2024-08-08 22:23 | HP ---
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 Upon arrival to ER patient has low-grade temperature of 99.9, heart rate 132 blood pressure 155/92 saturation 99% on room air. Labs WBC 13.9 with negative left shift of neutrophils 82, hemoglobin 9.6, hematocrit 31, platelet count 487. Sodium 132, potassium 2.9, chloride 95, glucose 325, magnesium 1.7 troponin less than four BNP 25 albumin 2.6. Urinalysis consistent with urinary tract infection. Influenza type a and B negative SARs COVID negative. Chest x-ray result revealed no acute pulmonary infiltrate is seen. CT abdomen and pelvis with contrast result revealed 5.8 x 3.8 cm complex sepsis dated lesion seen in the posterior mid or upper pole of the right kidney extending to the posterior perihepatic space which may represent cystic mass, abscess versus hematoma. While in the ER patient received fluid resuscitation of NS 30 mL/kilogram over 3 hours, Zosyn IV, magnesium 400 mg p.o., potassium 50 mEq p.o. and Tylenol 1000 mg p.o. we will admit patient for further medical management. REVIEW OF SYSTEMS CONSTITUTIONAL: Denies fevers, chills, or night sweats. No unintentional weight loss reported. NEUROLOGICAL: Denies headache, amaurosis fugax, motor weakness, sensory deficit, vertigo/spinning sensation, gait abnormalities, or tremors. ENT: No hearing loss, otalgia, otorrhea, rhinitis, rhinorrhea, hoarseness, or sore throat. CARDIOVASCULAR: Denies any exertional angina, dyspnea on exertion, orthopnea, paroxysmal nocturnal dyspnea, palpitations, life-threatening arrhythmias, claudication. PULMONARY: Denies any shortness of breath, cough, phlegm/sputum, hemoptysis, pleuritic chest pain. SLEEP: Denies morning headaches, daytime somnolence or napping. Denies difficulty falling asleep, staying asleep, waking from sleep. Denies knowledge of snoring. GASTROINTESTINAL: Denies any type of dysphagia to either liquids or solids. Denies nausea, vomiting, pyrosis, early satiety, abdominal pain, diarrhea, constipation, or changes in stool consistency or caliber. Denies coffee-ground emesis, hematemesis, hematochezia, or melanotic stools. GENITOURINARY: Complain of right flank pain Denies frequency, urgency, nocturia, hematuria or incontinence (Storage/Irritative symptoms.) Low urinary stream, straining to void, urinary intermittency or hesitancy, splitting of the voiding stream, terminal dribbling. ENDOCRINOLOGIC: Denies polyuria, polydipsia, polyphagia or heat/cold intolerances. HEMATOLOGIC: Denies thrombophilia/previous clots, or coagulopathy/bleeding disorders. ONCOLOGIC: Denies personal history of malignancy. DERMATOLOGIC: Denies rashes or pruritus. PSYCHIATRIC: Denies any suicidal or homicidal ideation. Denies hallucinations. 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 Patient denies alcohol tobacco and recreational drug use ] FAMILY HISTORY: [Stroke, hypertension, diabetes, cardiovascular disease and asthma ] Coded Allergies: No Known Allergies (Unverified Allergy, Unknown, 08/13/15) PHYSICAL EXAM GENERAL APPEARANCE: The patient is awake, alert, and oriented, in no acute cardiopulmonary distress. NEUROLOGICAL: Cranial nerves II-XII grossly intact. Motor is 5/5 in bilateral upper and lower extremities proximal to distal. No sensory deficits. HEENT: Face is symmetric. Pupils are equal and reactive. Extraocular movements are intact. NECK: Supple. No JVD. No thyromegaly. No submental, submandibular, pre- /postauricular, occipital or supraclavicular lymphadenopathy. CHEST: Normal chest expansion. No Telemetry. LUNGS: Absence of any rales, rhonchi or any wheezing. CARDIOVASCULAR: Regular. S1 and S2 normal. No appreciable rubs, murmurs or gallops. ABDOMEN: Soft, nontender, and nondistended. There is no rebound, voluntary guarding, or rigidity. : Deferred. No Jackson. EXTREMITIES: Non-edematous and not cyanotic. No clubbing. Good capillary refill. SKIN: No skin breakdown. Vital Sign (Last 24 Hours) 08/08/24 21:15 Temp 100.0 Pulse 119 Resp 20 B/P (MAP) 132/76 Pulse Ox 99 O2 Delivery Room Air* O2 Flow Rate 0 FiO2 21 LABS: Laboratory: Test 08/08/24 20:04 08/08/24 18:59 08/08/24 18:52 Range/Units Urine Color LIGHT-YELLOW YELLOW Urine Appearance CLEAR CLEAR Urine pH 6.0 5.0-8.0 Urine Specific [place] 1.021 1.001-1.031 Urine Protein NEGATIVE NEGATIVE mg/dL Urine Glucose (UA) >=1000 H NEGATIVE mg/dL Urine Ketones NEGATIVE NEGATIVE mg/dL Urine Occult Blood +- (TRACE) H NEGATIVE Urine Nitrate NEGATIVE NEGATIVE Urine Bilirubin NEGATIVE NEGATIVE mg/dL Urine Urobilinogen 0.2 0.2-1.0 mg/dL Urine Leukocyte Esterase 75 H NEGATIVE Rufino/uL Urine RBC 2-5 H 0-1 /HPF Urine WBC 6-10 H 0-1 /HPF Urine Squamous Epithelial Cells FEW 0-2 /HPF Urine Bacteria None None Seen /HPF Influenza Type A Antigen Negative For Type A NEGATIVE Influenza Type B Antigen Negative For Type B NEGATIVE SARS-CoV-2 Antigen (Rapid) PRESUMPTIVE NEGATIVE NEGATIVE White Blood Count 13.9 H 4.8-10.8 K/uL Red Blood Count 4.10 4.00-5.50 MIL/uL Hemoglobin 9.6 L 12.0-16.0 g/dL Hematocrit 31.2 L 36-48 % Mean Corpuscular Volume 76.1 L 79-99 fL Mean Corpuscular Hemoglobin 23.4 L 27.0-33.0 pg Mean Corpuscular Hemoglobin Concent 30.8 L 32.0-36.0 g/dL Red Cell Distribution Width 15.9 H 11.0-15.5 % Platelet Count 487 H 130-400 K/uL Mean Platelet Volume 8.5 7.5-10.5 fL Immature Granulocyte % (Auto) 0.7 0-1 % Neutrophils (%) (Auto) 82.2 H 40.0-77.0 % Lymphocytes (%) (Auto) 11.7 L 21.0-51.0 % Monocytes (%) (Auto) 3.9 3.0-13.0 % Eosinophils (%) (Auto) 1.1 0.0-8.0 % Basophils (%) (Auto) 0.4 0.0-5.0 % Neutrophils # (Auto) 11.5 H 1.8-7.7 K/uL Lymphocytes # (Auto) 1.6 1.0-4.8 K/uL Monocytes # (Auto) 0.6 0.1-1.0 K/uL Eosinophils # (Auto) 0.16 0.00-0.70 K/uL Basophils # (Auto) 0.05 0.00-0.20 K/uL Absolute Immature Granulocyte (auto 0.10 0-1 K/uL Nucleated Red Blood Cells 0.0 0.0-0.19 % Red Blood Cell Morphology See comments Sodium Level 132 L 136-145 mmol/L Potassium Level 2.9 *L 3.5-5.1 mmol/L Chloride Level 95 L 101-111 mmol/L Carbon Dioxide Level 29 21-32 mmol/L Blood Urea Nitrogen 8 7-18 mg/dL Creatinine 1.0 0.5-1.0 mg/dL Glomerular Filtration Rate Calc 69 >90 mL/min Random Glucose 325 H 70-105 mg/dL Lactic Acid Level 1.5 0.8-2.5 mmol/L Total Calcium 8.5 8.5-10.1 mg/dL Magnesium Level 1.70 L 1.80-2.40 mg/dL Total Bilirubin 0.4 0.2-1.0 mg/dL Direct Bilirubin 0.1 0.0-0.3 mg/dL Aspartate Amino Transf (AST/SGOT) 8 L 10-37 U/L Alanine Aminotransferase (ALT/SGPT) 11 L 12-78 U/L Alkaline Phosphatase 117 50-136 U/L Total Creatine Kinase 72 21-232 U/L Troponin I High Sensitivity < 4.0 L 4-50 ng/L B-Type Natriuretic Peptide 25 0-100 pg/mL Total Protein 8.2 6.0-8.3 g/dL Albumin 2.6 L 3.5-5.0 g/dL Serum Test, Qualitative NEGATIVE NEGATIVE Current Medications Medications (Trade) Dose Ordered Sig/Lizette Route PRN Reason Start Time Stop Time Status Last Admin Dose Admin Piperacillin Sod/ Tazobactam Sod 50 ml @ 200 mls/hr STAT STAT IVPB 08/08/24 19:19 08/08/24 19:33 DC 08/08/24 19:52 200 MLS/HR DIAGNOSTICS / RADIOLOGY: [ ] ASSESSMENT: Suspected Right renal mass per CT POA Acute urinary tract infection POA Sirs with organ dysfunction POA Chronic anemia POA Acute thrombocytosis POA Electrolyte derangement POA Hyperglycemia denies history of diabetes POA Protein calorie malnutrition POA Morbid obesity POA PLAN: We will admit patient in medical surgical floor We will start on consistent carb diet We will start NS @ 100 ml / hr and re evaluate We will start patient on Zosyn IV Q 8 hours for empiric coverage We will start on Famotidine 20 mg IV bid for GI prophylaxis We will replace electrolytes as needed per protocol We will start on insulin sliding scale AC & HS with hypoglycemia protocol We will add prn medication for fever,pain,cough ,nausea and vomiting We will reconcile home meds once medlist available Follow-up blood culture and urine culture result We will request for fecal occult blood x1 We will request labs in am We will seek Urology consultation Further orders to follow depending on above results Case discussed with attending physician and came up with above treatment and plan of care. ADVANCED CARE PLANNING 1. Which of the following were discussed? Hospice Care - No Therapeutic options - Yes Advance Directives - No Other discussions - 2. Discussed with who? Patient 3. Voluntary nature of this service was explained to the patient? Yes 4. Amount of time spent - ___22____ 5. Reviewed by Physician? (if this service was performed by NPP) Yes Patient seen and examined by me. Agree with note by SALES PROMOTER SEE ADDITIONAL ORDERS PER CHART DISCUSSED WITH NURSING STAFF NOAH BHANDARI [employer]ESSING Aug 08, 2024 22:23
[2024-08-08] MEDS ORDERED: GLUCAGON 1MG KIT 1 MG ML IM PRN ×2 (22:30→23:00)
[2024-08-08] MEDS ORDERED: DEXTROSE 50%-WATER 50 ML DISP.SYRIN IV PRN ×2 (22:30→23:00)
[2024-08-08] MEDS ORDERED: ondanSETRON 4MG INJ IV PRN (22:30)
[2024-08-08] MEDS ORDERED: acetaMINOPHEN 325 MG TAB PO PRN (22:30)
--- NOTE | 2024-08-08 22:39 | NUR ---
PATIENT REPORTS SHE DOES NOT TAKE ANY PRESCRIBED MEDICATIONS DAILY
[2024-08-08] MEDS: 0.9%NACL 1000ML 1,000 ML IV SCH (22:42)
[2024-08-08] MEDS: acetaMINOPHEN 500 MG TABLET PO ONE (22:43)
[2024-08-08 23:31] VITALS: TEMP 98.4
[2024-08-08] MEDS: PoTASSium chloRIDE 20MEQ/100ML 100 ML IV PRN (23:48)
[2024-08-09] VITALS (10 sets, daily range): BP systolic 118–143; BP diastolic 77–89; PULSE 95–114; RESP 17–20; TEMP 97.7–98.8; O2SAT 96–99
--- NOTE | 2024-08-09 00:10 | NUR ---
ADMIT PT ADMITTED TO ROOM 330, AAOX4 AND DENIES ANY PAINS AT THIS TIME. BREATHING WITH EASE ON ROOM AIR. ADMISSION CARE DONE. PLACED IN BED COMFORTABLY WITH HOB ELEVATED. CONTINUED IVF AND IV POTASSIUM INFUSION FROM ER. PO POTASSIUM ADMINISTERED PER PROTOCOL. ADMISSION DATA BASE COMPLETED. ORIENTED TO ROOM AND UNIT. IN FOR MORE CARE AND MANAGEMENT. Addendum: 08/09/24 at 0105 by NEO TOPETE RN RN Amended: Links added.
[2024-08-09] MEDS: PoTASSium chloRIDE 20MEQ ER 20 MEQ ERTAB PO PRN (00:25)
[2024-08-09 01:50] LABS: HEMOGLOBIN A1C 11.8 % (4.0-6.0)
[2024-08-09] MEDS: ZOSYN 3.375GM +NS 50ML IV SCH (03:43)
[2024-08-09 04:01] LABS: BASOPHILS # (AUTO) 0.05 K/uL (0.00-0.20); BASOPHILS % (AUTO) 0.3 % (0.0-5.0); EOSINOPHILS % (AUTO) 2.8 % (0.0-8.0); HEMATOCRIT 31.5 % (36-48); IMMATURE GRANULOCYTE ABSOLUTE 0.07 K/uL (0-1); LYMPHOCYTES # (AUTO) 2.6 K/uL (1.0-4.8); LYMPHOCYTES % (AUTO) 18.4 % (21.0-51.0); MEAN CORPUSCULAR HEMOGLOBIN 23.4 pg (27.0-33.0); MEAN CORPUSCULAR HGB CONC 30.5 g/dL (32.0-36.0); MEAN CORPUSCULAR VOLUME 76.8 fL (79-99); MONOCYTES # (AUTO) 0.7 K/uL (0.1-1.0); MONOCYTES % (AUTO) 4.6 % (3.0-13.0); NEUTROPHILS # (AUTO) 10.5 K/uL (1.8-7.7); NEUTROPHILS % (AUTO) 73.4 % (40.0-77.0); PLATELET COUNT (AUTO) 488 K/uL (130-400); WHITE BLOOD COUNT (AUTO) 14.3 K/uL (4.8-10.8)
[2024-08-09 04:28] LABS: ALBUMIN 2.4 g/dL (3.5-5.0); BILIRUBIN,TOTAL 0.3 mg/dL (0.2-1.0); CREATININE 0.8 mg/dL (0.5-1.0); MAGNESIUM 1.9 mg/dL (1.80-2.40); POTASSIUM 3.8 mmol/L (3.5-5.1); TOTAL PROTEIN, SERUM 7.2 g/dL (6.0-8.3)
[2024-08-09] MEDS: INSULIN humuLIN R 100 UNIT/ML 3ML SQ SCH (06:28)
--- NOTE | 2024-08-09 06:28 | NUR ---
MEDS PT SLEPT AT INTERVALS SINCE ADMISSION. NO DISTRESS NOTED. NO CONCERNS VERBALIZED. DUE INSULIN DOSE ADMINISTERED, TOLERATED WELL. KEPT RESTED IN BED. FOR MORE CARE.
[2024-08-09] MEDS: FAMOTIDINE 20MG VIAL IV SCH (07:52)
--- NOTE | 2024-08-09 13:38 | NUR ---
DCP: INITIAL ASSESSMENT Patient lives with spouse and children. She has no home services or DME. Patient states she is able to complete ADLs independently and drives. She has no PCP at this time. Pharmacy is [facility] in [place]. Patient voiced no safety concerns regarding returning home and states she has no difficulty with housing or buying food. DCP is home. Patient has no insurance or benefits. She is not a [place] citizen or legal resident. Patient was provided with community resources for post hospitalization follow up. Patient was also provided with Good RX card for prescriptions and educated on [place] $4 medication program and [facility] [employer] $5 medication program. Patient is being assisted by [facility] for financial matters. Addendum: 08/09/24 at 1341 by TONYA MORALES SS Amended: Links added.
--- NOTE | 2024-08-09 19:05 | PN ---
[facility] PROGRESS NOTE Date of Service: Aug 09, 2024 Time of Service: 19:00 SUBJECTIVE: 08/09 patient seen at bedside, no acute events overnight. Patient reports she is feeling better, she is in no acute distress, saturating well on room air. Continue with antibiotics, CT showing an incidental renal mass concerning for renal cell carcinoma. Urology recommendations still pending, we will follow up. WBC increased from 13.9 up to 14.3, hemoglobin stable at 9.6, same as yesterday, platelets stable at 480, segments yesterday, remainder of her labs are relatively unremarkable. REVIEW OF SYSTEMS CONSTITUTIONAL: Denies fevers, chills, or night sweats. No unintentional weight loss reported. NEUROLOGICAL: Denies headache, amaurosis fugax, motor weakness, sensory deficit, vertigo/spinning sensation, gait abnormalities, or tremors. ENT: No hearing loss, otalgia, otorrhea, rhinitis, rhinorrhea, hoarseness, or sore throat. CARDIOVASCULAR: Denies any exertional angina, dyspnea on exertion, orthopnea, paroxysmal nocturnal dyspnea, palpitations, life-threatening arrhythmias, claudication. PULMONARY: Denies any shortness of breath, cough, phlegm/sputum, hemoptysis, pleuritic chest pain. SLEEP: Denies morning headaches, daytime somnolence or napping. Denies difficulty falling asleep, staying asleep, waking from sleep. Denies knowledge of snoring. GASTROINTESTINAL: Denies any type of dysphagia to either liquids or solids. Denies nausea, vomiting, pyrosis, early satiety, abdominal pain, diarrhea, constipation, or changes in stool consistency or caliber. Denies coffee-ground emesis, hematemesis, hematochezia, or melanotic stools. GENITOURINARY: Complain of right flank pain Denies frequency, urgency, nocturia, hematuria or incontinence (Storage/Irritative symptoms.) Low urinary stream, straining to void, urinary intermittency or hesitancy, splitting of the voiding stream, terminal dribbling. ENDOCRINOLOGIC: Denies polyuria, polydipsia, polyphagia or heat/cold intolerances. HEMATOLOGIC: Denies thrombophilia/previous clots, or coagulopathy/bleeding disorders. ONCOLOGIC: Denies personal history of malignancy. DERMATOLOGIC: Denies rashes or pruritus. PSYCHIATRIC: Denies any suicidal or homicidal ideation. Denies hallucinations. PHYSICAL EXAM GENERAL APPEARANCE: The patient is awake, alert, and oriented, in no acute cardiopulmonary distress. NEUROLOGICAL: Cranial nerves II-XII grossly intact. Motor is 5/5 in bilateral upper and lower extremities proximal to distal. No sensory deficits. HEENT: Face is symmetric. Pupils are equal and reactive. Extraocular movements are intact. NECK: Supple. No JVD. No thyromegaly. No submental, submandibular, pre- /postauricular, occipital or supraclavicular lymphadenopathy. CHEST: Normal chest expansion. No Telemetry. LUNGS: Absence of any rales, rhonchi or any wheezing. CARDIOVASCULAR: Regular. S1 and S2 normal. No appreciable rubs, murmurs or gallops. ABDOMEN: Soft, nontender, and nondistended. There is no rebound, voluntary guarding, or rigidity. : Deferred. No Jackson. EXTREMITIES: Non-edematous and not cyanotic. No clubbing. Good capillary refill. SKIN: No skin breakdown. Vital Signs (last 8hr) Date Time Temp Pulse Resp B/P (MAP) Pulse Ox O2 Delivery O2 Flow Rate FiO2 08/09/24 16:00 98.6 108 17 124/77 99 Room Air 08/09/24 12:00 98.2 95 18 118/81 96 Room Air LABS: Laboratory: Test 08/09/24 15:44 08/09/24 05:40 08/09/24 03:49 08/08/24 20:04 Range/Units Whole Blood Glucose 187 H 70-110 MG/DL Stool Occult Blood NEGATIVE NEGATIVE White Blood Count 14.3 H 4.8-10.8 K/uL Red Blood Count 4.10 4.00-5.50 MIL/uL Hemoglobin 9.6 L 12.0-16.0 g/dL Hematocrit 31.5 L 36-48 % Mean Corpuscular Volume 76.8 L 79-99 fL Mean Corpuscular Hemoglobin 23.4 L 27.0-33.0 pg Mean Corpuscular Hemoglobin Concent 30.5 L 32.0-36.0 g/dL Red Cell Distribution Width 16.0 H 11.0-15.5 % Platelet Count 488 H 130-400 K/uL Mean Platelet Volume 8.3 7.5-10.5 fL Immature Granulocyte % (Auto) 0.5 0-1 % Neutrophils (%) (Auto) 73.4 40.0-77.0 % Lymphocytes (%) (Auto) 18.4 L 21.0-51.0 % Monocytes (%) (Auto) 4.6 3.0-13.0 % Eosinophils (%) (Auto) 2.8 0.0-8.0 % Basophils (%) (Auto) 0.3 0.0-5.0 % Neutrophils # (Auto) 10.5 H 1.8-7.7 K/uL Lymphocytes # (Auto) 2.6 1.0-4.8 K/uL Monocytes # (Auto) 0.7 0.1-1.0 K/uL Eosinophils # (Auto) 0.40 0.00-0.70 K/uL Basophils # (Auto) 0.05 0.00-0.20 K/uL Absolute Immature Granulocyte (auto 0.07 0-1 K/uL Nucleated Red Blood Cells 0.0 0.0-0.19 % Sodium Level 138 136-145 mmol/L Potassium Level 3.8 3.5-5.1 mmol/L Chloride Level 102 101-111 mmol/L Carbon Dioxide Level 29 21-32 mmol/L Blood Urea Nitrogen 6 L 7-18 mg/dL Creatinine 0.8 0.5-1.0 mg/dL Glomerular Filtration Rate Calc 90 >90 mL/min Random Glucose 240 H 70-105 mg/dL Lactic Acid Level 1.2 0.8-2.5 mmol/L Total Calcium 8.0 L 8.5-10.1 mg/dL Magnesium Level 1.90 1.80-2.40 mg/dL Total Bilirubin 0.3 # 0.2-1.0 mg/dL Aspartate Amino Transf (AST/SGOT) 10 10-37 U/L Alanine Aminotransferase (ALT/SGPT) 7 L 12-78 U/L Alkaline Phosphatase 119 50-136 U/L Total Protein 7.2 6.0-8.3 g/dL Albumin 2.4 L 3.5-5.0 g/dL Procalcitonin < 0.05 L 0.05-0.5 ng/mL Urine Color LIGHT-YELLOW YELLOW Urine Appearance CLEAR CLEAR Urine pH 6.0 5.0-8.0 Urine Specific [place] 1.021 1.001-1.031 Urine Protein NEGATIVE NEGATIVE mg/dL Urine Glucose (UA) >=1000 H NEGATIVE mg/dL Urine Ketones NEGATIVE NEGATIVE mg/dL Urine Occult Blood +- (TRACE) H NEGATIVE Urine Nitrate NEGATIVE NEGATIVE Urine Bilirubin NEGATIVE NEGATIVE mg/dL Urine Urobilinogen 0.2 0.2-1.0 mg/dL Urine Leukocyte Esterase 75 H NEGATIVE Rufino/uL Urine RBC 2-5 H 0-1 /HPF Urine WBC 6-10 H 0-1 /HPF Urine Squamous Epithelial Cells FEW 0-2 /HPF Urine Bacteria None None Seen /HPF Test 08/08/24 18:59 08/08/24 18:52 Range/Units Influenza Type A Antigen Negative For Type A NEGATIVE Influenza Type B Antigen Negative For Type B NEGATIVE SARS-CoV-2 Antigen (Rapid) PRESUMPTIVE NEGATIVE NEGATIVE Red Blood Cell Morphology See comments Hemoglobin A1c 11.8 H 4.0-6.0 % Estimated Average Glucose (eAG) 292 H 70-126 mg/dL Direct Bilirubin 0.1 0.0-0.3 mg/dL Total Creatine Kinase 72 21-232 U/L Troponin I High Sensitivity < 4.0 L 4-50 ng/L B-Type Natriuretic Peptide 25 0-100 pg/mL Serum Test, Qualitative NEGATIVE NEGATIVE Current Medications Medications (Trade) Dose Ordered Sig/Lizette Route PRN Reason Start Time Stop Time Status Last Admin Dose Admin Acetaminophen (TYLenol 325MG TAB) 650 mg Q4H PRN PO MILD PAIN (1-3) 08/08/24 22:30 09/07/24 22:29 Acetaminophen (TYLenol 325MG TAB) 650 mg Q6H PRN PO TEMPERATURE GREATER THAN 101.5 08/08/24 22:30 09/07/24 22:29 Dextrose (D50w) 50 ml AD PRN IV HYPOGLYCEMIA PROTOCOL 08/08/24 22:30 09/07/24 22:29 Dextrose (D50w) 50 ml AD PRN IV HYPOGLYCEMIA PROTOCOL 08/08/24 23:00 09/07/24 22:59 Famotidine (Pepcid 20mg Vial) 20 mg BID IV 08/09/24 09:00 09/08/24 08:59 08/09/24 07:52 20 MG Glucagon (Glucagon 1mg Kit) 1 mg AD PRN IM HYPOGLYCEMIA PROTOCOL 08/08/24 22:30 09/07/24 22:29 Glucagon (Glucagon 1mg Kit) 1 mg AD PRN IM HYPOGLYCEMIA PROTOCOL 08/08/24 23:00 09/07/24 22:59 Insulin Human Regular (humuLIN R 100 UNIT/ML 3ML) INSULIN SLIDING SCAL... ACHS SQ 08/09/24 07:30 09/08/24 07:29 08/09/24 16:28 4 UNIT Magnesium Sulfate 50 ml @ 0 mls/hr PROTOCOL PRN IV OTHER [SEE ORDER COMMENTS] 08/08/24 23:00 09/07/24 22:59 Ondansetron HCl (zoFRAN 4MG INJ) 4 mg Q6H PRN IV NAUSEA/VOMITING 08/08/24 22:30 09/07/24 22:29 Piperacillin Sod/ Tazobactam Sod 50 ml @ 200 mls/hr STAT STAT IVPB 08/08/24 19:19 08/08/24 19:33 DC 08/08/24 19:52 200 MLS/HR Piperacillin Sod/ Tazobactam Sod (Zosyn 3.375gm+NS 50ml) 3.375 gm Q8H IV 08/09/24 04:00 08/19/24 03:59 08/09/24 12:26 3.375 GM Potassium Chloride 100 ml @ 100 mls/hr AD PRN IV POTASSIUM PROTOCOL 08/08/24 23:00 09/07/24 22:59 08/09/24 02:06 100 MLS/HR Potassium Chloride (K-Dur/Klor-Con 20meq) 20 meq AD PRN PO POTASSIUM PROTOCOL 08/08/24 23:00 09/07/24 22:59 08/09/24 00:25 20 MEQ Potassium Chloride (KCl 10% Elixir 20meq/15ml) 20 meq AD PRN PO POTASSIUM PROTOCOL 08/08/24 23:00 09/07/24 22:59 Sodium Chloride 1,000 ml @ 100 mls/hr Q10H IV 08/08/24 22:30 09/07/24 22:29 08/09/24 07:50 100 MLS/HR DIAGNOSTICS / RADIOLOGY: [ ] ASSESSMENT: Suspected Right renal mass per CT POA Acute urinary tract infection POA Sirs with organ dysfunction POA Chronic anemia POA Acute thrombocytosis POA Electrolyte derangement POA Hyperglycemia denies history of diabetes POA Protein calorie malnutrition POA Morbid obesity POA PLAN: Continue on consistent carb diet Continue NS @ 100 ml / hr and re evaluate Continue patient on Zosyn IV Q 8 hours for empiric coverage Continue on Famotidine 20 mg IV bid for GI prophylaxis Replace electrolytes as needed per protocol Continue on insulin sliding scale AC & HS with hypoglycemia protocol Follow-up blood culture and urine culture result Urology consulted, appreciate recommendations Further orders to follow depending on above results Disposition: Pending urology recommendations DILLON STEPHEN MD Aug 09, 2024 19:05
--- NOTE | 2024-08-09 20:40 | NUR ---
MEDS SHIFT ASSESSMENT DONE, PLEASE REFER TO CHART. DUE MEDS ADMINISTERED, TOLERATED WELL. KEPT RESTED AND COMFORTABLE IN BED. CALL LIGHT WITHIN REACH.
--- NOTE | 2024-08-09 21:10 | CONS ---
UROLOGY CONSULTATION NOTE Date of Service: Aug 09, 2024 Reason for Consultation: Cystic lesion/possible abscess involving the posterior right kidney Requesting Physician: Awais Hunter MD HISTORY OF PRESENT ILLNESS: 49-year-old female with no pertinent medical history with past surgical history of cholecystectomy who presents to the ED for complaints of right flank pain with mass which started 8 days ago .Patient reports having dry cough as well. She denied any systemic or local urinary symptoms. Patient reports she is left eye blind since . Upon arrival to ER patient has low-grade temperature of 99.9, heart rate 132 blood pressure 155/92 saturation 99% on room air. Labs WBC 13.9 with negative left shift of neutrophils 82, hemoglobin 9.6, hematocrit 31, platelet count 487. Sodium 132, potassium 2.9, chloride 95, glucose 325, magnesium 1.7 troponin less than four BNP 25 albumin 2.6. Urinalysis consistent with urinary tract infection. Influenza type a and B negative SARs COVID negative. Chest x-ray result revealed no acute pulmonary infiltrate is seen. CT abdomen and pelvis with contrast result revealed 5.8 x 3.8 cm complex sepsis dated lesion seen in the posterior mid or upper pole of the right kidney extending to the posterior perihepatic space which may represent cystic mass, abscess versus hematoma. While in the ER patient received fluid resuscitation of NS 30 mL/kilogram over 3 hours, Zosyn IV, magnesium 400 mg p.o., potassium 50 mEq p.o. and Tylenol 1000 mg p.o. we will admit patient for further medical management. She was admitted to the floor for supportive care with a urological consult REVIEW OF SYSTEMS CONSTITUTIONAL: Denies fever, chills, or fatigue. HEAD/FACE: No signs of trauma. EENT: Denies eye pain, blurred vision, double vision, or light sensitivity. RESPIRATORY: Denies shortness of breath, cough, wheezing CARDIOVASCULAR: Denies chest pain, palpitation, syncope GASTROINTESTINAL/ABDOMINAL: Denies abdominal pain, constipation, diarrhea, nausea or vomiting GENITOURINARY: Denies dysuria or hematuria. MUSCULOSKELETAL: Denies joint pain, tenderness, or trauma. INTEGUMENTARY: Denies rash or itchiness NEUROLOGICAL/PSYCH: Denies anxiety, depression, heat or cold intolerance. PAST MEDICAL HISTORY: Left eye blindness PAST SURGICAL HISTORY: cholecystectomy PAST SOCIAL HISTORY: Denies ethanol Denies recreational drugs Denies smoking Has three children FAMILY HISTORY: Family history noncontributory to presenting complaint Coded Allergies: No Known Allergies (Unverified Allergy, Unknown, 08/13/15) PHYSICAL EXAM EYES: Anicteric. Pupils equal and reactive. HENT: No oral thrush seen, moist Oral mucosa NECK: Supple, no JVD or thyromegaly. LUNGS: Good air entry. No rales, no rhonchi. CARDIOVASCULAR: S1, S2 regular. No murmur heard. ABDOMEN: Soft, non tender, bowel sounds present, no organomegaly CENTRAL NERVOUS SYSTEM: Awake, alert, oriented x 3. No focal deficits. SKIN: No rashes, no swelling. LYMPHATICS: No peripheral lymphadenopathy MUSCULOSKELETAL: No joint swelling, erythema or tenderness. EXTREMITIES: No cyanosis or clubbing BACK: No deformity, no pressure ulcer. GENITOURINARY: Normal genitalia, there is no costovertebral angle tenderness Vital Sign (Last 24 Hours) 08/09/24 08/09/24 08:00 20:00 Temp 98.6 Pulse 114 Resp 20 B/P (MAP) 129/89 Pulse Ox 98 O2 Delivery Room Air O2 Flow Rate 0 FiO2 21 Intake & Output (last 24hrs) 08/08/24 08/08/24 08/09/24 15:00 23:00 07:00 Intake Total 960.0 ml Balance 960.0 ml LABS: Laboratory: Test 08/09/24 19:58 08/09/24 05:40 08/09/24 03:49 08/08/24 20:04 Range/Units Whole Blood Glucose 176 H 70-110 MG/DL Stool Occult Blood NEGATIVE NEGATIVE White Blood Count 14.3 H 4.8-10.8 K/uL Red Blood Count 4.10 4.00-5.50 MIL/uL Hemoglobin 9.6 L 12.0-16.0 g/dL Hematocrit 31.5 L 36-48 % Mean Corpuscular Volume 76.8 L 79-99 fL Mean Corpuscular Hemoglobin 23.4 L 27.0-33.0 pg Mean Corpuscular Hemoglobin Concent 30.5 L 32.0-36.0 g/dL Red Cell Distribution Width 16.0 H 11.0-15.5 % Platelet Count 488 H 130-400 K/uL Mean Platelet Volume 8.3 7.5-10.5 fL Immature Granulocyte % (Auto) 0.5 0-1 % Neutrophils (%) (Auto) 73.4 40.0-77.0 % Lymphocytes (%) (Auto) 18.4 L 21.0-51.0 % Monocytes (%) (Auto) 4.6 3.0-13.0 % Eosinophils (%) (Auto) 2.8 0.0-8.0 % Basophils (%) (Auto) 0.3 0.0-5.0 % Neutrophils # (Auto) 10.5 H 1.8-7.7 K/uL Lymphocytes # (Auto) 2.6 1.0-4.8 K/uL Monocytes # (Auto) 0.7 0.1-1.0 K/uL Eosinophils # (Auto) 0.40 0.00-0.70 K/uL Basophils # (Auto) 0.05 0.00-0.20 K/uL Absolute Immature Granulocyte (auto 0.07 0-1 K/uL Nucleated Red Blood Cells 0.0 0.0-0.19 % Sodium Level 138 136-145 mmol/L Potassium Level 3.8 3.5-5.1 mmol/L Chloride Level 102 101-111 mmol/L Carbon Dioxide Level 29 21-32 mmol/L Blood Urea Nitrogen 6 L 7-18 mg/dL Creatinine 0.8 0.5-1.0 mg/dL Glomerular Filtration Rate Calc 90 >90 mL/min Random Glucose 240 H 70-105 mg/dL Lactic Acid Level 1.2 0.8-2.5 mmol/L Total Calcium 8.0 L 8.5-10.1 mg/dL Magnesium Level 1.90 1.80-2.40 mg/dL Total Bilirubin 0.3 # 0.2-1.0 mg/dL Aspartate Amino Transf (AST/SGOT) 10 10-37 U/L Alanine Aminotransferase (ALT/SGPT) 7 L 12-78 U/L Alkaline Phosphatase 119 50-136 U/L Total Protein 7.2 6.0-8.3 g/dL Albumin 2.4 L 3.5-5.0 g/dL Procalcitonin < 0.05 L 0.05-0.5 ng/mL Urine Color LIGHT-YELLOW YELLOW Urine Appearance CLEAR CLEAR Urine pH 6.0 5.0-8.0 Urine Specific [place] 1.021 1.001-1.031 Urine Protein NEGATIVE NEGATIVE mg/dL Urine Glucose (UA) >=1000 H NEGATIVE mg/dL Urine Ketones NEGATIVE NEGATIVE mg/dL Urine Occult Blood +- (TRACE) H NEGATIVE Urine Nitrate NEGATIVE NEGATIVE Urine Bilirubin NEGATIVE NEGATIVE mg/dL Urine Urobilinogen 0.2 0.2-1.0 mg/dL Urine Leukocyte Esterase 75 H NEGATIVE Rufino/uL Urine RBC 2-5 H 0-1 /HPF Urine WBC 6-10 H 0-1 /HPF Urine Squamous Epithelial Cells FEW 0-2 /HPF Urine Bacteria None None Seen /HPF Test 08/08/24 18:59 08/08/24 18:52 Range/Units Influenza Type A Antigen Negative For Type A NEGATIVE Influenza Type B Antigen Negative For Type B NEGATIVE SARS-CoV-2 Antigen (Rapid) PRESUMPTIVE NEGATIVE NEGATIVE Red Blood Cell Morphology See comments Hemoglobin A1c 11.8 H 4.0-6.0 % Estimated Average Glucose (eAG) 292 H 70-126 mg/dL Direct Bilirubin 0.1 0.0-0.3 mg/dL Total Creatine Kinase 72 21-232 U/L Troponin I High Sensitivity < 4.0 L 4-50 ng/L B-Type Natriuretic Peptide 25 0-100 pg/mL Serum Test, Qualitative NEGATIVE NEGATIVE DIAGNOSTICS / RADIOLOGY: CT scan abdomen and pelvis with contrast did show a lesion mostly cystic in nature involving the right kidney posteriorly. This is a possibility of an abscess as well. The some stranding in the soft tissue fat surrounding the lesion. ASSESSMENT: 49-year-old female presents with right flank pain and diagnosed on imaging with a cystic looking lesion associated with the right kidney PLAN: 1. We will strongly recommend an IR aspiration of the cystic/abscess right posterior renal lesion for cytology/culture. We not show if this is an infectious process or a malignant process but aspiration and sending for cytology/culture with guide us one way or another 2. Continue supportive care and then based on the results from the aspiration we will modify an update our recommendations. 60 minutes spent to complete a consult, more than half of the time spent in counseling and coordination of care and addressing all questions posed by patient, some time was spent discussing with members of her care team, the rest of the time was spent reviewing medical records including laboratory and imaging data REBECCA ESTRELLA MD Aug 09, 2024 21:10
--- NOTE | 2024-08-09 21:10 | NUR ---
CONSULT DR ESTRELLA IN TO SEE PT. NO NEW ORDERS RECEIVED. PLEASE REFER TO MD NOTES FOR RECOMMENDATIONS.
[2024-08-10] VITALS (8 sets, daily range): BP systolic 120–140; BP diastolic 56–92; PULSE 92–107; RESP 18–20; TEMP 97.6–99; O2SAT 95–99
[2024-08-10 04:23] LABS: BASOPHILS # (AUTO) 0.03 K/uL (0.00-0.20); BASOPHILS % (AUTO) 0.3 % (0.0-5.0); EOSINOPHILS # (AUTO) 0.48 K/uL (0.00-0.70); EOSINOPHILS % (AUTO) 4.1 % (0.0-8.0); HEMATOCRIT 28.9 % (36-48); IMMATURE GRANULOCYTE ABSOLUTE 0.05 K/uL (0-1); LYMPHOCYTES # (AUTO) 1.5 K/uL (1.0-4.8); LYMPHOCYTES % (AUTO) 12.5 % (21.0-51.0); MEAN CORPUSCULAR HEMOGLOBIN 23.1 pg (27.0-33.0); MEAN CORPUSCULAR HGB CONC 29.8 g/dL (32.0-36.0); MEAN CORPUSCULAR VOLUME 77.7 fL (79-99); MONOCYTES # (AUTO) 0.4 K/uL (0.1-1.0); MONOCYTES % (AUTO) 3.2 % (3.0-13.0); NEUTROPHILS # (AUTO) 9.3 K/uL (1.8-7.7); NEUTROPHILS % (AUTO) 79.5 % (40.0-77.0); PLATELET COUNT (AUTO) 409 K/uL (130-400); RED BLOOD CELL COUNT(AUTO) 3.72 MIL/uL (4.00-5.50); RED CELL DISTRIBUTION WIDTH 16.1 % (11.0-15.5); WHITE BLOOD COUNT (AUTO) 11.7 K/uL (4.8-10.8)
[2024-08-10 04:51] LABS: CREATININE 0.9 mg/dL (0.5-1.0); MAGNESIUM 1.7 mg/dL (1.80-2.40); PHOSPHORUS 4.1 mg/dL (2.5-4.9); POTASSIUM 3.3 mmol/L (3.5-5.1)
--- NOTE | 2024-08-10 05:36 | NUR ---
MEDS PT SLEPT AT INTERVALS DURING THE SHIFT. AWAKENED FOR DUE MEDS. STARTED ON PO POTASSIUM PER PROTOCOL, KCL=3.3, TOLERATED WELL. KEPT COMFORTABLE IN BED. FOR MORE CARE.
[2024-08-10] MEDS: PoTASSium chl 10% ELIXIR 20MEQ 20 MEQ/15 ML UDCUP PO PRN (08:15)
[2024-08-10] MEDS: MAGNESIUM 2GM PREMIX 50ML 50 ML IV PRN (08:17)
--- NOTE | 2024-08-10 13:25 | PN ---
[facility] PROGRESS NOTE Date of Service: Aug 10, 2024 Time of Service: 13:19 SUBJECTIVE: 08/09 patient seen at bedside, no acute events overnight. Patient reports she is feeling better, she is in no acute distress, saturating well on room air. Continue with antibiotics, CT showing an incidental renal mass concerning for renal cell carcinoma. Urology recommendations still pending, we will follow up. WBC increased from 13.9 up to 14.3, hemoglobin stable at 9.6, same as yesterday, platelets stable at 480, segments yesterday, remainder of her labs are relatively unremarkable. 08/10 patient seen at bedside, no acute events overnight. Urology recommending IR aspiration of renal collection that will be sent for cytology and cultures, we will place orders for procedure tomorrow. NPO after midnight. Pt has no complaints at bedside REVIEW OF SYSTEMS CONSTITUTIONAL: Denies fevers, chills, or night sweats. No unintentional weight loss reported. NEUROLOGICAL: Denies headache, amaurosis fugax, motor weakness, sensory deficit, vertigo/spinning sensation, gait abnormalities, or tremors. ENT: No hearing loss, otalgia, otorrhea, rhinitis, rhinorrhea, hoarseness, or sore throat. CARDIOVASCULAR: Denies any exertional angina, dyspnea on exertion, orthopnea, paroxysmal nocturnal dyspnea, palpitations, life-threatening arrhythmias, claudication. PULMONARY: Denies any shortness of breath, cough, phlegm/sputum, hemoptysis, pleuritic chest pain. SLEEP: Denies morning headaches, daytime somnolence or napping. Denies difficulty falling asleep, staying asleep, waking from sleep. Denies knowledge of snoring. GASTROINTESTINAL: Denies any type of dysphagia to either liquids or solids. Denies nausea, vomiting, pyrosis, early satiety, abdominal pain, diarrhea, constipation, or changes in stool consistency or caliber. Denies coffee-ground emesis, hematemesis, hematochezia, or melanotic stools. GENITOURINARY: Complain of right flank pain Denies frequency, urgency, nocturia, hematuria or incontinence (Storage/Irritative symptoms.) Low urinary stream, straining to void, urinary intermittency or hesitancy, splitting of the voiding stream, terminal dribbling. ENDOCRINOLOGIC: Denies polyuria, polydipsia, polyphagia or heat/cold intolerances. HEMATOLOGIC: Denies thrombophilia/previous clots, or coagulopathy/bleeding disorders. ONCOLOGIC: Denies personal history of malignancy. DERMATOLOGIC: Denies rashes or pruritus. PSYCHIATRIC: Denies any suicidal or homicidal ideation. Denies hallucinations. PHYSICAL EXAM GENERAL APPEARANCE: The patient is awake, alert, and oriented, in no acute cardiopulmonary distress. NEUROLOGICAL: Cranial nerves II-XII grossly intact. Motor is 5/5 in bilateral upper and lower extremities proximal to distal. No sensory deficits. HEENT: Face is symmetric. Pupils are equal and reactive. Extraocular movements are intact. NECK: Supple. No JVD. No thyromegaly. No submental, submandibular, pre- /postauricular, occipital or supraclavicular lymphadenopathy. CHEST: Normal chest expansion. No Telemetry. LUNGS: Absence of any rales, rhonchi or any wheezing. CARDIOVASCULAR: Regular. S1 and S2 normal. No appreciable rubs, murmurs or gallops. ABDOMEN: Soft, nontender, and nondistended. There is no rebound, voluntary guarding, or rigidity. : Deferred. No Jackson. EXTREMITIES: Non-edematous and not cyanotic. No clubbing. Good capillary refill. SKIN: No skin breakdown. Vital Signs (last 8hr) Date Time Temp Pulse Resp B/P (MAP) Pulse Ox O2 Delivery O2 Flow Rate FiO2 08/10/24 11:39 99.0 107 18 126/66 96 Room Air 08/10/24 08:00 99 Room Air* 0 21 08/10/24 07:34 99.0 92 18 120/74 99 Room Air LABS: Laboratory: Test 08/10/24 10:48 08/10/24 04:06 08/09/24 05:40 08/09/24 03:49 Range/Units Whole Blood Glucose 263 #H 70-110 MG/DL White Blood Count 11.7 H 4.8-10.8 K/uL Red Blood Count 3.72 L 4.00-5.50 MIL/uL Hemoglobin 8.6 L 12.0-16.0 g/dL Hematocrit 28.9 L 36-48 % Mean Corpuscular Volume 77.7 L 79-99 fL Mean Corpuscular Hemoglobin 23.1 L 27.0-33.0 pg Mean Corpuscular Hemoglobin Concent 29.8 L 32.0-36.0 g/dL Red Cell Distribution Width 16.1 H 11.0-15.5 % Platelet Count 409 H 130-400 K/uL Mean Platelet Volume 8.3 7.5-10.5 fL Immature Granulocyte % (Auto) 0.4 0-1 % Neutrophils (%) (Auto) 79.5 H 40.0-77.0 % Lymphocytes (%) (Auto) 12.5 L 21.0-51.0 % Monocytes (%) (Auto) 3.2 3.0-13.0 % Eosinophils (%) (Auto) 4.1 0.0-8.0 % Basophils (%) (Auto) 0.3 0.0-5.0 % Neutrophils # (Auto) 9.3 H 1.8-7.7 K/uL Lymphocytes # (Auto) 1.5 1.0-4.8 K/uL Monocytes # (Auto) 0.4 0.1-1.0 K/uL Eosinophils # (Auto) 0.48 0.00-0.70 K/uL Basophils # (Auto) 0.03 0.00-0.20 K/uL Absolute Immature Granulocyte (auto 0.05 0-1 K/uL Nucleated Red Blood Cells 0.0 0.0-0.19 % Sodium Level 136 136-145 mmol/L Potassium Level 3.3 L 3.5-5.1 mmol/L Chloride Level 101 101-111 mmol/L Carbon Dioxide Level 26 21-32 mmol/L Blood Urea Nitrogen 7 7-18 mg/dL Creatinine 0.9 0.5-1.0 mg/dL Glomerular Filtration Rate Calc 78 >90 mL/min Random Glucose 134 H 70-105 mg/dL Total Calcium 8.2 L 8.5-10.1 mg/dL Phosphorus Level 4.1 2.5-4.9 mg/dL Magnesium Level 1.70 L 1.80-2.40 mg/dL Stool Occult Blood NEGATIVE NEGATIVE Lactic Acid Level 1.2 0.8-2.5 mmol/L Total Bilirubin 0.3 # 0.2-1.0 mg/dL Aspartate Amino Transf (AST/SGOT) 10 10-37 U/L Alanine Aminotransferase (ALT/SGPT) 7 L 12-78 U/L Alkaline Phosphatase 119 50-136 U/L Total Protein 7.2 6.0-8.3 g/dL Albumin 2.4 L 3.5-5.0 g/dL Procalcitonin < 0.05 L 0.05-0.5 ng/mL Test 08/08/24 20:04 08/08/24 18:59 08/08/24 18:52 Range/Units Urine Color LIGHT-YELLOW YELLOW Urine Appearance CLEAR CLEAR Urine pH 6.0 5.0-8.0 Urine Specific [place] 1.021 1.001-1.031 Urine Protein NEGATIVE NEGATIVE mg/dL Urine Glucose (UA) >=1000 H NEGATIVE mg/dL Urine Ketones NEGATIVE NEGATIVE mg/dL Urine Occult Blood +- (TRACE) H NEGATIVE Urine Nitrate NEGATIVE NEGATIVE Urine Bilirubin NEGATIVE NEGATIVE mg/dL Urine Urobilinogen 0.2 0.2-1.0 mg/dL Urine Leukocyte Esterase 75 H NEGATIVE Rufino/uL Urine RBC 2-5 H 0-1 /HPF Urine WBC 6-10 H 0-1 /HPF Urine Squamous Epithelial Cells FEW 0-2 /HPF Urine Bacteria None None Seen /HPF Influenza Type A Antigen Negative For Type A NEGATIVE Influenza Type B Antigen Negative For Type B NEGATIVE SARS-CoV-2 Antigen (Rapid) PRESUMPTIVE NEGATIVE NEGATIVE Red Blood Cell Morphology See comments Hemoglobin A1c 11.8 H 4.0-6.0 % Estimated Average Glucose (eAG) 292 H 70-126 mg/dL Direct Bilirubin 0.1 0.0-0.3 mg/dL Total Creatine Kinase 72 21-232 U/L Troponin I High Sensitivity < 4.0 L 4-50 ng/L B-Type Natriuretic Peptide 25 0-100 pg/mL Serum Test, Qualitative NEGATIVE NEGATIVE Current Medications Medications (Trade) Dose Ordered Sig/Lizette Route PRN Reason Start Time Stop Time Status Last Admin Dose Admin Acetaminophen (TYLenol 325MG TAB) 650 mg Q4H PRN PO MILD PAIN (1-3) 08/08/24 22:30 09/07/24 22:29 Acetaminophen (TYLenol 325MG TAB) 650 mg Q6H PRN PO TEMPERATURE GREATER THAN 101.5 08/08/24 22:30 09/07/24 22:29 Dextrose (D50w) 50 ml AD PRN IV HYPOGLYCEMIA PROTOCOL 08/08/24 22:30 09/07/24 22:29 Dextrose (D50w) 50 ml AD PRN IV HYPOGLYCEMIA PROTOCOL 08/08/24 23:00 09/07/24 22:59 Famotidine (Pepcid 20mg Vial) 20 mg BID IV 08/09/24 09:00 09/08/24 08:59 08/10/24 08:16 20 MG Glucagon (Glucagon 1mg Kit) 1 mg AD PRN IM HYPOGLYCEMIA PROTOCOL 08/08/24 22:30 09/07/24 22:29 Glucagon (Glucagon 1mg Kit) 1 mg AD PRN IM HYPOGLYCEMIA PROTOCOL 08/08/24 23:00 09/07/24 22:59 Insulin Human Regular (humuLIN R 100 UNIT/ML 3ML) INSULIN SLIDING SCAL... ACHS SQ 08/09/24 07:30 09/08/24 07:29 08/10/24 12:02 10 UNIT Magnesium Sulfate 50 ml @ 0 mls/hr PROTOCOL PRN IV OTHER [SEE ORDER COMMENTS] 08/08/24 23:00 09/07/24 22:59 08/10/24 08:17 50 MLS/HR Ondansetron HCl (zoFRAN 4MG INJ) 4 mg Q6H PRN IV NAUSEA/VOMITING 08/08/24 22:30 09/07/24 22:29 Piperacillin Sod/ Tazobactam Sod 50 ml @ 200 mls/hr STAT STAT IVPB 08/08/24 19:19 08/08/24 19:33 DC 08/08/24 19:52 200 MLS/HR Piperacillin Sod/ Tazobactam Sod (Zosyn 3.375gm+NS 50ml) 3.375 gm Q8H IV 08/09/24 04:00 08/19/24 03:59 08/10/24 11:59 3.375 GM Potassium Chloride 100 ml @ 100 mls/hr AD PRN IV POTASSIUM PROTOCOL 08/08/24 23:00 09/07/24 22:59 08/09/24 02:06 100 MLS/HR Potassium Chloride (K-Dur/Klor-Con 20meq) 20 meq AD PRN PO POTASSIUM PROTOCOL 08/08/24 23:00 09/07/24 22:59 08/10/24 05:36 20 MEQ Potassium Chloride (KCl 10% Elixir 20meq/15ml) 20 meq AD PRN PO POTASSIUM PROTOCOL 08/08/24 23:00 09/07/24 22:59 08/10/24 08:15 20 MEQ Sodium Chloride 1,000 ml @ 100 mls/hr Q10H IV 08/08/24 22:30 09/07/24 22:29 08/10/24 05:36 100 MLS/HR DIAGNOSTICS / RADIOLOGY: [ ] ASSESSMENT: Suspected Right renal mass per CT POA Acute urinary tract infection POA Sirs with organ dysfunction POA Chronic anemia POA Acute thrombocytosis POA Electrolyte derangement POA Hyperglycemia denies history of diabetes POA Protein calorie malnutrition POA Morbid obesity POA PLAN: Continue on consistent carb diet Continue NS @ 100 ml / hr and re evaluate Continue patient on Zosyn IV Q 8 hours for empiric coverage Continue on Famotidine 20 mg IV bid for GI prophylaxis Replace electrolytes as needed per protocol Continue on insulin sliding scale AC & HS with hypoglycemia protocol Follow-up blood culture and urine culture result Urology consulted, appreciate recommendations Further orders to follow depending on above results Disposition: Pending urology recommendations DILLON STEPHEN MD Aug 10, 2024 13:25
[2024-08-10] MEDS: acetaMINOPHEN 325 MG TAB PO PRN (16:52)
--- NOTE | 2024-08-10 21:20 | NUR ---
MEDS PT JUST HAD HER SHOWER, TOLERATED ACTIVITY WELL. SHIFT ASSESSMENT DONE, PLEASE REFER TO CHART. DUE MEDS ADMINISTERED, TOLERATED WELL. KEPT RESTED AND COMFORTABLE IN BED. CALL LIGHT WITHIN REACH. INSTRUCTED TO BE NPO POST MN FOR PROCEDURE IN AM. PT VERBALIZES UNDERSTANDING.
[2024-08-11] VITALS (16 sets, daily range): BP systolic 115–147; BP diastolic 55–86; PULSE 87–103; RESP 16–20; TEMP 98–98.6; O2SAT 96–99
[2024-08-11 04:35] LABS: BASOPHILS # (AUTO) 0.04 K/uL (0.00-0.20); BASOPHILS % (AUTO) 0.3 % (0.0-5.0); EOSINOPHILS % (AUTO) 4.1 % (0.0-8.0); HEMATOCRIT 29.8 % (36-48); IMMATURE GRANULOCYTE ABSOLUTE 0.05 K/uL (0-1); LYMPHOCYTES # (AUTO) 1.4 K/uL (1.0-4.8); LYMPHOCYTES % (AUTO) 11.4 % (21.0-51.0); MEAN CORPUSCULAR HEMOGLOBIN 23.3 pg (27.0-33.0); MEAN CORPUSCULAR HGB CONC 30.9 g/dL (32.0-36.0); MEAN CORPUSCULAR VOLUME 75.4 fL (79-99); MONOCYTES # (AUTO) 0.5 K/uL (0.1-1.0); MONOCYTES % (AUTO) 3.8 % (3.0-13.0); NEUTROPHILS # (AUTO) 9.7 K/uL (1.8-7.7); PLATELET COUNT (AUTO) 480 K/uL (130-400); RED BLOOD CELL COUNT(AUTO) 3.95 MIL/uL (4.00-5.50); RED CELL DISTRIBUTION WIDTH 16.3 % (11.0-15.5); WHITE BLOOD COUNT (AUTO) 12.1 K/uL (4.8-10.8)
[2024-08-11 04:47] LABS: INR 1.01 (0.85-1.15); PROTHROMBIN TIME 10.7 SEC (9.6-11.6)
[2024-08-11 04:48] LABS: PARTIAL THROMBOPLASTIN TIME 29.4 SEC (26.3-35.5)
[2024-08-11 04:54] LABS: CREATININE 0.9 mg/dL (0.5-1.0); POTASSIUM 3.3 mmol/L (3.5-5.1)
--- NOTE | 2024-08-11 05:34 | NUR ---
[facility] PT SLEPT AT INTERVALS DURING THE SHIFT. KEPT NPO FOR PROCEDURE. KCL IV REPLACEMENT HUNG PER PROTOCOL. KEPT COMFORTABLE. FOR MORE CARE.
[2024-08-11] MEDS ORDERED: FENTanyl CITRate PF 50 MCG/1 ML 2ML VIAL ONE (13:02)
[2024-08-11] MEDS ORDERED: MIDAZOLAM HCL 1 MG/ML 2ML VIAL ONE (13:02)
--- NOTE | 2024-08-11 13:30 | NUR ---
U/S GD RT RENAL ABSCESS ASPIRATION/ PIGTAIL DRAIN PLACEMENT TOLERATED PROCEDURE. PERFORMED BY DR ALFONSO. PUNCTURE SITE TO RT LATERAL BACK. 20CC ASPIRATED AND SENT TO LAB. 8FR PIGTAIL DRAIN PLACED AND STITCHED IN PLACE. END OF PROCEDURE AT 1320. DRESSINGS DRY AND INTACT. REPORT GIVEN TO Shanice [place] LVN.TRANSPORTED TO 330 VIA BED. DENIES PAIN. A&O.
--- NOTE | 2024-08-11 14:39 | PN ---
[facility] PROGRESS NOTE Date of Service: Aug 11, 2024 Time of Service: 14:38 SUBJECTIVE: 08/09 patient seen at bedside, no acute events overnight. Patient reports she is feeling better, she is in no acute distress, saturating well on room air. Continue with antibiotics, CT showing an incidental renal mass concerning for renal cell carcinoma. Urology recommendations still pending, we will follow up. WBC increased from 13.9 up to 14.3, hemoglobin stable at 9.6, same as yesterday, platelets stable at 480, segments yesterday, remainder of her labs are relatively unremarkable. 08/10 patient seen at bedside, no acute events overnight. Urology recommending IR aspiration of renal collection that will be sent for cytology and cultures, we will place orders for procedure tomorrow. NPO after midnight. Pt has no complaints at bedside 08/11 patient seen at bedside, no acute events overnight. She is pending IR aspiration of renal collection today, we will follow up postprocedure. Fluid will be sent for cytology and cultures. At bedside she has no complaints, she was in no acute distress. REVIEW OF SYSTEMS 12 point review of systems negative unless noted in HPI PHYSICAL EXAM GENERAL APPEARANCE: The patient is awake, alert, and oriented, in no acute cardiopulmonary distress. NEUROLOGICAL: Cranial nerves II-XII grossly intact. Motor is 5/5 in bilateral upper and lower extremities proximal to distal. No sensory deficits. HEENT: Face is symmetric. Pupils are equal and reactive. Extraocular movements are intact. NECK: Supple. No JVD. No thyromegaly. No submental, submandibular, pre- /postauricular, occipital or supraclavicular lymphadenopathy. CHEST: Normal chest expansion. No Telemetry. LUNGS: Absence of any rales, rhonchi or any wheezing. CARDIOVASCULAR: Regular. S1 and S2 normal. No appreciable rubs, murmurs or gallops. ABDOMEN: Soft, nontender, and nondistended. There is no rebound, voluntary guarding, or rigidity. : Deferred. No Jackson. EXTREMITIES: Non-edematous and not cyanotic. No clubbing. Good capillary refill. SKIN: No skin breakdown. Vital Signs (last 8hr) Date Time Temp Pulse Resp B/P (MAP) Pulse Ox O2 Delivery O2 Flow Rate FiO2 08/11/24 11:27 98.4 103 18 123/82 100 Room Air 08/11/24 08:20 99 Room Air* 0 21 08/11/24 07:42 98.4 95 18 128/81 99 Room Air LABS: Laboratory: Test 08/11/24 11:06 08/11/24 04:13 08/10/24 04:06 Range/Units Whole Blood Glucose 142 H 70-110 MG/DL White Blood Count 12.1 H 4.8-10.8 K/uL Red Blood Count 3.95 L 4.00-5.50 MIL/uL Hemoglobin 9.2 L 12.0-16.0 g/dL Hematocrit 29.8 L 36-48 % Mean Corpuscular Volume 75.4 L 79-99 fL Mean Corpuscular Hemoglobin 23.3 L 27.0-33.0 pg Mean Corpuscular Hemoglobin Concent 30.9 L 32.0-36.0 g/dL Red Cell Distribution Width 16.3 H 11.0-15.5 % Platelet Count 480 H 130-400 K/uL Mean Platelet Volume 8.4 7.5-10.5 fL Immature Granulocyte % (Auto) 0.4 0-1 % Neutrophils (%) (Auto) 80.0 H 40.0-77.0 % Lymphocytes (%) (Auto) 11.4 L 21.0-51.0 % Monocytes (%) (Auto) 3.8 3.0-13.0 % Eosinophils (%) (Auto) 4.1 0.0-8.0 % Basophils (%) (Auto) 0.3 0.0-5.0 % Neutrophils # (Auto) 9.7 H 1.8-7.7 K/uL Lymphocytes # (Auto) 1.4 1.0-4.8 K/uL Monocytes # (Auto) 0.5 0.1-1.0 K/uL Eosinophils # (Auto) 0.50 0.00-0.70 K/uL Basophils # (Auto) 0.04 0.00-0.20 K/uL Absolute Immature Granulocyte (auto 0.05 0-1 K/uL Nucleated Red Blood Cells 0.0 0.0-0.19 % Prothrombin Time 10.7 9.6-11.6 SEC Prothromb Time International Ratio 1.01 0.85-1.15 Activated Partial Thromboplast Time 29.4 26.3-35.5 SEC Sodium Level 136 136-145 mmol/L Potassium Level 3.3 L 3.5-5.1 mmol/L Chloride Level 101 101-111 mmol/L Carbon Dioxide Level 25 21-32 mmol/L Blood Urea Nitrogen 7 7-18 mg/dL Creatinine 0.9 0.5-1.0 mg/dL Glomerular Filtration Rate Calc 78 >90 mL/min Random Glucose 161 H 70-105 mg/dL Total Calcium 8.5 8.5-10.1 mg/dL Magnesium Level 2.00 1.80-2.40 mg/dL Phosphorus Level 4.1 2.5-4.9 mg/dL Current Medications Medications (Trade) Dose Ordered Sig/Lizette Route PRN Reason Start Time Stop Time Status Last Admin Dose Admin Acetaminophen (TYLenol 325MG TAB) 650 mg Q4H PRN PO MILD PAIN (1-3) 08/08/24 22:30 09/07/24 22:29 08/10/24 16:52 650 MG Acetaminophen (TYLenol 325MG TAB) 650 mg Q6H PRN PO TEMPERATURE GREATER THAN 101.5 08/08/24 22:30 09/07/24 22:29 Dextrose (D50w) 50 ml AD PRN IV HYPOGLYCEMIA PROTOCOL 08/08/24 22:30 08/11/24 07:30 DC Dextrose (D50w) 50 ml AD PRN IV HYPOGLYCEMIA PROTOCOL 08/08/24 23:00 09/07/24 22:59 Enoxaparin Sodium (Lovenox) 40 mg DAILY SQ 08/12/24 09:00 09/11/24 08:59 Famotidine (Pepcid 20mg Vial) 20 mg BID IV 08/09/24 09:00 09/08/24 08:59 08/11/24 08:30 20 MG Glucagon (Glucagon 1mg Kit) 1 mg AD PRN IM HYPOGLYCEMIA PROTOCOL 08/08/24 22:30 08/11/24 07:30 DC Glucagon (Glucagon 1mg Kit) 1 mg AD PRN IM HYPOGLYCEMIA PROTOCOL 08/08/24 23:00 09/07/24 22:59 Insulin Human Regular (humuLIN R 100 UNIT/ML 3ML) INSULIN SLIDING SCAL... ACHS SQ 08/09/24 07:30 09/08/24 07:29 08/10/24 17:03 4 UNIT Magnesium Sulfate 50 ml @ 0 mls/hr PROTOCOL PRN IV OTHER [SEE ORDER COMMENTS] 08/08/24 23:00 09/07/24 22:59 08/10/24 08:17 50 MLS/HR Ondansetron HCl (zoFRAN 4MG INJ) 4 mg Q6H PRN IV NAUSEA/VOMITING 08/08/24 22:30 09/07/24 22:29 Piperacillin Sod/ Tazobactam Sod 50 ml @ 200 mls/hr STAT STAT IVPB 08/08/24 19:19 08/08/24 19:33 DC 08/08/24 19:52 200 MLS/HR Piperacillin Sod/ Tazobactam Sod (Zosyn 3.375gm+NS 50ml) 3.375 gm Q8H IV 08/09/24 04:00 08/19/24 03:59 08/11/24 12:51 3.375 GM Potassium Chloride 100 ml @ 100 mls/hr AD PRN IV POTASSIUM PROTOCOL 08/08/24 23:00 09/07/24 22:59 08/11/24 05:34 100 MLS/HR Potassium Chloride (K-Dur/Klor-Con 20meq) 20 meq AD PRN PO POTASSIUM PROTOCOL 08/08/24 23:00 09/07/24 22:59 08/10/24 05:36 20 MEQ Potassium Chloride (KCl 10% Elixir 20meq/15ml) 20 meq AD PRN PO POTASSIUM PROTOCOL 08/08/24 23:00 09/07/24 22:59 08/10/24 08:15 20 MEQ Sodium Chloride 1,000 ml @ 100 mls/hr Q10H IV 08/08/24 22:30 09/07/24 22:29 08/10/24 23:33 100 MLS/HR DIAGNOSTICS / RADIOLOGY: [ ] ASSESSMENT: Suspected Right renal mass per CT POA Acute urinary tract infection POA Sirs with organ dysfunction POA Chronic anemia POA Acute thrombocytosis POA Electrolyte derangement POA Hyperglycemia denies history of diabetes POA Protein calorie malnutrition POA Morbid obesity POA PLAN: Continue on consistent carb diet Continue NS @ 100 ml / hr and re evaluate Continue patient on Zosyn IV Q 8 hours for empiric coverage Continue on Famotidine 20 mg IV bid for GI prophylaxis Replace electrolytes as needed per protocol Continue on insulin sliding scale AC & HS with hypoglycemia protocol Follow-up blood culture and urine culture result Urology consulted, appreciate recommendations Further orders to follow depending on above results Disposition: Pending urology recommendations, IR aspiration of collection DILLON STEPHEN MD Aug 11, 2024 14:39
--- NOTE | 2024-08-11 16:04 | PRN ---
US PERC DRN CATH PLCT W IMG IR REASON: RT POSTERIOR RENAL CYSTIC LESION COMPARISON: Previous CT 08/08/2024. TECHNIQUE: Ultrasound-guided drain placement within right retroperitoneal and right perinephric abscess. FINDINGS: Ultrasound demonstrates complex fluid collection the right perinephric space extending into the right retroperitoneum. PROCEDURE: Informed consent obtained from the patient following explanation of risk, benefits, complications. Timeout performed by radiology nursing staff. Patient received 2 mg of intravenous Versed and 25 mcg intravenous fentanyl for conscious sedation, administered by radiology nursing personnel, continuous monitoring of the oxygen saturation, chronic status, inspiratory status. Right flank prepped and draped in sterile fashion. Local anesthesia performed 10 mL 1% lidocaine subcutaneous. Under direct ultrasound guidance, 18-gauge needle was passed into the right retroperitoneal and perinephric space. Purulent fluid aspirated. This was submitted for Gram stain and cultures. Guidewire was placed, fascial dilatation performed, 8 [place] drainage catheter placed and advanced into the retroperitoneal space. Small amount of purulent material was aspirated. Catheter secured to the skin with retention suture and sterile dressing. Drainage bag attached. Patient tolerated procedure well without evidence of complication. Estimated blood loss: Less than 5 mL. IMPRESSION: Large inflammatory phlegmon and abscess of the right retroperitoneal and perinephric space. 8 [place]andan drain placed for drainage. Repeat CT in 24 hours recommended with possible drain manipulation and or additional drain placement. Cultures pending. ALYSSIA ALFONSO DO Aug 11, 2024 16:04
[2024-08-12] VITALS (7 sets, daily range): BP systolic 128–135; BP diastolic 74–84; PULSE 89–109; RESP 18–20; TEMP 98–99.6; O2SAT 98–99
[2024-08-12 04:58] LABS: BASOPHILS # (AUTO) 0.04 K/uL (0.00-0.20); BASOPHILS % (AUTO) 0.3 % (0.0-5.0); EOSINOPHILS # (AUTO) 0.47 K/uL (0.00-0.70); EOSINOPHILS % (AUTO) 3.9 % (0.0-8.0); HEMATOCRIT 31.2 % (36-48); IMMATURE GRANULOCYTE ABSOLUTE 0.07 K/uL (0-1); LYMPHOCYTES # (AUTO) 1.3 K/uL (1.0-4.8); LYMPHOCYTES % (AUTO) 10.3 % (21.0-51.0); MEAN CORPUSCULAR HEMOGLOBIN 23.2 pg (27.0-33.0); MEAN CORPUSCULAR HGB CONC 30.1 g/dL (32.0-36.0); MEAN CORPUSCULAR VOLUME 76.8 fL (79-99); MONOCYTES # (AUTO) 0.5 K/uL (0.1-1.0); MONOCYTES % (AUTO) 3.9 % (3.0-13.0); NEUTROPHILS # (AUTO) 9.9 K/uL (1.8-7.7); PLATELET COUNT (AUTO) 474 K/uL (130-400); RED BLOOD CELL COUNT(AUTO) 4.06 MIL/uL (4.00-5.50); RED CELL DISTRIBUTION WIDTH 15.9 % (11.0-15.5); WHITE BLOOD COUNT (AUTO) 12.2 K/uL (4.8-10.8)
[2024-08-12 05:08] LABS: CREATININE 0.9 mg/dL (0.5-1.0); POTASSIUM 3.4 mmol/L (3.5-5.1)
[2024-08-12] MEDS: ENOXAPARIN SODIUM 40 MG/0.4 ML SYRINGE SQ SCH (09:41)
--- NOTE | 2024-08-12 14:22 | HMCIMG ---
CT ABDOMEN W/O CONTRAST HISTORY: Renal abscess drain placement COMPARISON: 08/08/2024 TECHNIQUE: Multiple sequential axial images of the abdomen were obtained from the dome of the diaphragm through iliac crests. Patient was not given contrast through intravenous route. Oral contrast was not given. FINDINGS: Tiny right pleural effusions with compressive atelectasis. There is no evidence of parenchymal disease or pulmonary nodule of the visualized lower lungs. Degenerative changes are seen of the thoracolumbar spine. Complex material is seen in the posterior aspect of the right kidney extending into the subcutaneous tissue and right paraspinal musculature. Drainage tube is seen. Clinical correlation is recommended regarding drainage. The liver, spleen, adrenal glands and pancreas are unremarkable. There is no evidence of hydronephrosis bilaterally. No evidence of renal stone is seen. Fecal material is seen in the colon. There are normal-sized retroperitoneal and mesenteric lymph nodes. No ascites is seen. No CT evidence of acute appendicitis is seen. No ascites is seen. IMPRESSION: 1. Complex material is seen in the posterior aspect of the right kidney extending into the subcutaneous tissue and right paraspinal musculature. Drainage tube is seen. Clinical correlation is recommended regarding drainage. CT was performed with one or more following dose reduction techniques: automated exposure control, adjustment of the mA and kv according to patient's size, or use of a iterative reconstruction technique.
--- NOTE | 2024-08-12 18:20 | PN ---
[facility] PROGRESS NOTE Date of Service: Aug 12, 2024 Time of Service: 18:16 SUBJECTIVE: 08/09 patient seen at bedside, no acute events overnight. Patient reports she is feeling better, she is in no acute distress, saturating well on room air. Continue with antibiotics, CT showing an incidental renal mass concerning for renal cell carcinoma. Urology recommendations still pending, we will follow up. WBC increased from 13.9 up to 14.3, hemoglobin stable at 9.6, same as yesterday, platelets stable at 480, segments yesterday, remainder of her labs are relatively unremarkable. 08/10 patient seen at bedside, no acute events overnight. Urology recommending IR aspiration of renal collection that will be sent for cytology and cultures, we will place orders for procedure tomorrow. NPO after midnight. Pt has no complaints at bedside 08/11 patient seen at bedside, no acute events overnight. She is pending IR aspiration of renal collection today, we will follow up postprocedure. Fluid will be sent for cytology and cultures. At bedside she has no complaints, she was in no acute distress. 08/12 patient seen at bedside, no acute events overnight. She is status post IR placement of drain and aspiration of perirenal abscess. Fluid cultures still pending, repeat CT of the abdomen/pelvis to assess drain placement and progressive drainage, we will follow up postprocedure. She has been afebrile, hemodynamically stable mildly tachycardic with heart rate ranging from 89 up to 105. WBC stable at 12.2, similar to yesterday, hemoglobin improved from 9.2 up to 9.4, platelets decreased from 480 down to 474, remainder of her labs are relatively unremarkable. REVIEW OF SYSTEMS 12 point review of systems negative unless noted in HPI PHYSICAL EXAM GENERAL APPEARANCE: The patient is awake, alert, and oriented, in no acute cardiopulmonary distress. NEUROLOGICAL: Cranial nerves II-XII grossly intact. Motor is 5/5 in bilateral upper and lower extremities proximal to distal. No sensory deficits. HEENT: Face is symmetric. Pupils are equal and reactive. Extraocular movements are intact. NECK: Supple. No JVD. No thyromegaly. No submental, submandibular, pre- /postauricular, occipital or supraclavicular lymphadenopathy. CHEST: Normal chest expansion. No Telemetry. LUNGS: Absence of any rales, rhonchi or any wheezing. CARDIOVASCULAR: Regular. S1 and S2 normal. No appreciable rubs, murmurs or gallops. ABDOMEN: Soft, nontender, and nondistended. There is no rebound, voluntary guarding, or rigidity. : Deferred. No Jackson. EXTREMITIES: Non-edematous and not cyanotic. No clubbing. Good capillary refill. SKIN: No skin breakdown. Vital Signs (last 8hr) Date Time Temp Pulse Resp B/P (MAP) Pulse Ox O2 Delivery O2 Flow Rate FiO2 08/12/24 16:00 98.6 102 18 129/81 98 Room Air 08/12/24 12:00 98.4 105 18 128/82 95 Room Air LABS: Laboratory: Test 08/12/24 16:08 08/12/24 04:23 08/11/24 04:13 Range/Units Whole Blood Glucose 130 H 70-110 MG/DL White Blood Count 12.2 H 4.8-10.8 K/uL Red Blood Count 4.06 4.00-5.50 MIL/uL Hemoglobin 9.4 L 12.0-16.0 g/dL Hematocrit 31.2 L 36-48 % Mean Corpuscular Volume 76.8 L 79-99 fL Mean Corpuscular Hemoglobin 23.2 L 27.0-33.0 pg Mean Corpuscular Hemoglobin Concent 30.1 L 32.0-36.0 g/dL Red Cell Distribution Width 15.9 H 11.0-15.5 % Platelet Count 474 H 130-400 K/uL Mean Platelet Volume 8.3 7.5-10.5 fL Immature Granulocyte % (Auto) 0.6 0-1 % Neutrophils (%) (Auto) 81.0 H 40.0-77.0 % Lymphocytes (%) (Auto) 10.3 L 21.0-51.0 % Monocytes (%) (Auto) 3.9 3.0-13.0 % Eosinophils (%) (Auto) 3.9 0.0-8.0 % Basophils (%) (Auto) 0.3 0.0-5.0 % Neutrophils # (Auto) 9.9 H 1.8-7.7 K/uL Lymphocytes # (Auto) 1.3 1.0-4.8 K/uL Monocytes # (Auto) 0.5 0.1-1.0 K/uL Eosinophils # (Auto) 0.47 0.00-0.70 K/uL Basophils # (Auto) 0.04 0.00-0.20 K/uL Absolute Immature Granulocyte (auto 0.07 0-1 K/uL Nucleated Red Blood Cells 0.0 0.0-0.19 % Sodium Level 136 136-145 mmol/L Potassium Level 3.4 L 3.5-5.1 mmol/L Chloride Level 102 101-111 mmol/L Carbon Dioxide Level 27 21-32 mmol/L Blood Urea Nitrogen 10 7-18 mg/dL Creatinine 0.9 0.5-1.0 mg/dL Glomerular Filtration Rate Calc 78 >90 mL/min Random Glucose 128 H 70-105 mg/dL Total Calcium 8.4 L 8.5-10.1 mg/dL Prothrombin Time 10.7 9.6-11.6 SEC Prothromb Time International Ratio 1.01 0.85-1.15 Activated Partial Thromboplast Time 29.4 26.3-35.5 SEC Magnesium Level 2.00 1.80-2.40 mg/dL Current Medications Medications (Trade) Dose Ordered Sig/Lizette Route PRN Reason Start Time Stop Time Status Last Admin Dose Admin Acetaminophen (TYLenol 325MG TAB) 650 mg Q4H PRN PO MILD PAIN (1-3) 08/08/24 22:30 09/07/24 22:29 08/11/24 16:09 650 MG Acetaminophen (TYLenol 325MG TAB) 650 mg Q6H PRN PO TEMPERATURE GREATER THAN 101.5 08/08/24 22:30 09/07/24 22:29 Dextrose (D50w) 50 ml AD PRN IV HYPOGLYCEMIA PROTOCOL 08/08/24 22:30 08/11/24 07:30 DC Dextrose (D50w) 50 ml AD PRN IV HYPOGLYCEMIA PROTOCOL 08/08/24 23:00 09/07/24 22:59 Enoxaparin Sodium (Lovenox) 40 mg DAILY SQ 08/12/24 09:00 09/11/24 08:59 08/12/24 09:41 40 MG Famotidine (Pepcid 20mg Vial) 20 mg BID IV 08/09/24 09:00 09/08/24 08:59 08/12/24 09:41 20 MG Glucagon (Glucagon 1mg Kit) 1 mg AD PRN IM HYPOGLYCEMIA PROTOCOL 08/08/24 22:30 08/11/24 07:30 DC Glucagon (Glucagon 1mg Kit) 1 mg AD PRN IM HYPOGLYCEMIA PROTOCOL 08/08/24 23:00 09/07/24 22:59 Insulin Human Regular (humuLIN R 100 UNIT/ML 3ML) INSULIN SLIDING SCAL... ACHS SQ 08/09/24 07:30 09/08/24 07:29 08/12/24 11:15 8 UNIT Magnesium Sulfate 50 ml @ 0 mls/hr PROTOCOL PRN IV OTHER [SEE ORDER COMMENTS] 08/08/24 23:00 09/07/24 22:59 08/10/24 08:17 50 MLS/HR Ondansetron HCl (zoFRAN 4MG INJ) 4 mg Q6H PRN IV NAUSEA/VOMITING 08/08/24 22:30 09/07/24 22:29 Piperacillin Sod/ Tazobactam Sod 50 ml @ 200 mls/hr STAT STAT IVPB 08/08/24 19:19 08/08/24 19:33 DC 08/08/24 19:52 200 MLS/HR Piperacillin Sod/ Tazobactam Sod (Zosyn 3.375gm+NS 50ml) 3.375 gm Q8H IV 08/09/24 04:00 08/19/24 03:59 08/12/24 11:46 3.375 GM Potassium Chloride 100 ml @ 100 mls/hr AD PRN IV POTASSIUM PROTOCOL 08/08/24 23:00 09/07/24 22:59 08/11/24 05:34 100 MLS/HR Potassium Chloride (K-Dur/Klor-Con 20meq) 20 meq AD PRN PO POTASSIUM PROTOCOL 08/08/24 23:00 09/07/24 22:59 08/12/24 09:42 20 MEQ Potassium Chloride (KCl 10% Elixir 20meq/15ml) 20 meq AD PRN PO POTASSIUM PROTOCOL 08/08/24 23:00 09/07/24 22:59 08/10/24 08:15 20 MEQ Sodium Chloride 1,000 ml @ 100 mls/hr Q10H IV 08/08/24 22:30 09/07/24 22:29 08/12/24 16:20 100 MLS/HR DIAGNOSTICS / RADIOLOGY: [ ] ASSESSMENT: Suspected Right renal mass per CT POA Acute urinary tract infection POA Sirs with organ dysfunction POA Chronic anemia POA Acute thrombocytosis POA Electrolyte derangement POA Hyperglycemia denies history of diabetes POA Protein calorie malnutrition POA Morbid obesity POA PLAN: Continue on consistent carb diet Continue NS @ 100 ml / hr and re evaluate Continue patient on Zosyn IV Q 8 hours for empiric coverage Continue on Famotidine 20 mg IV bid for GI prophylaxis Replace electrolytes as needed per protocol Continue on insulin sliding scale AC & HS with hypoglycemia protocol Follow-up blood culture and urine culture result Urology consulted, appreciate recommendations Further orders to follow depending on above results Disposition: Pending cultures of aspirate DILLON STEPHEN MD Aug 12, 2024 18:20
[2024-08-13] VITALS (7 sets, daily range): BP systolic 114–151; BP diastolic 68–82; PULSE 89–103; RESP 18–20; TEMP 98.5–99.1; O2SAT 98–99
[2024-08-13 06:20] LABS: BASOPHILS # (AUTO) 0.04 K/uL (0.00-0.20); BASOPHILS % (AUTO) 0.3 % (0.0-5.0); EOSINOPHILS % (AUTO) 3.8 % (0.0-8.0); HEMATOCRIT 29.6 % (36-48); IMMATURE GRANULOCYTE ABSOLUTE 0.06 K/uL (0-1); LYMPHOCYTES # (AUTO) 1.3 K/uL (1.0-4.8); LYMPHOCYTES % (AUTO) 9.7 % (21.0-51.0); MEAN CORPUSCULAR HEMOGLOBIN 23.2 pg (27.0-33.0); MEAN CORPUSCULAR HGB CONC 30.1 g/dL (32.0-36.0); MEAN CORPUSCULAR VOLUME 77.3 fL (79-99); MONOCYTES # (AUTO) 0.7 K/uL (0.1-1.0); MONOCYTES % (AUTO) 5.6 % (3.0-13.0); NEUTROPHILS # (AUTO) 10.6 K/uL (1.8-7.7); NEUTROPHILS % (AUTO) 80.1 % (40.0-77.0); PLATELET COUNT (AUTO) 470 K/uL (130-400); RED BLOOD CELL COUNT(AUTO) 3.83 MIL/uL (4.00-5.50); RED CELL DISTRIBUTION WIDTH 16.1 % (11.0-15.5); WHITE BLOOD COUNT (AUTO) 13.3 K/uL (4.8-10.8)
[2024-08-13 06:28] LABS: CREATININE 0.8 mg/dL (0.5-1.0); MAGNESIUM 1.9 mg/dL (1.80-2.40); PHOSPHORUS 3.8 mg/dL (2.5-4.9)
--- NOTE | 2024-08-13 12:38 | NUR ---
Discharge Update: Pending final fluid culture results, s/p perianal drain placement with purulent output. Dr. Dumas is following.
--- NOTE | 2024-08-13 15:51 | PN ---
[facility] PROGRESS NOTE Date of Service: Aug 13, 2024 Time of Service: 15:44 SUBJECTIVE: 08/09 patient seen at bedside, no acute events overnight. Patient reports she is feeling better, she is in no acute distress, saturating well on room air. Continue with antibiotics, CT showing an incidental renal mass concerning for renal cell carcinoma. Urology recommendations still pending, we will follow up. WBC increased from 13.9 up to 14.3, hemoglobin stable at 9.6, same as yesterday, platelets stable at 480, segments yesterday, remainder of her labs are relatively unremarkable. 08/10 patient seen at bedside, no acute events overnight. Urology recommending IR aspiration of renal collection that will be sent for cytology and cultures, we will place orders for procedure tomorrow. NPO after midnight. Pt has no complaints at bedside 08/11 patient seen at bedside, no acute events overnight. She is pending IR aspiration of renal collection today, we will follow up postprocedure. Fluid will be sent for cytology and cultures. At bedside she has no complaints, she was in no acute distress. 08/12 patient seen at bedside, no acute events overnight. She is status post IR placement of drain and aspiration of perirenal abscess. Fluid cultures still pending, repeat CT of the abdomen/pelvis to assess drain placement and progressive drainage, we will follow up postprocedure. She has been afebrile, hemodynamically stable mildly tachycardic with heart rate ranging from 89 up to 105. WBC stable at 12.2, similar to yesterday, hemoglobin improved from 9.2 up to 9.4, platelets decreased from 480 down to 474, remainder of her labs are relatively unremarkable. 08/13 patient seen at bedside, no acute events overnight. Drain is in place with minimal drainage. It is growing out Gram-negative rods, sensitivities are still pending, we will follow up. Discussed case with Urology who recommends the patient be discharged with drain in place to follow up in several weeks for removal of drain. WBC increased from 12.2 up to 13.3, hemoglobin decreased from 9.4 down to 8.9, platelets decreased from 474 down to 470, remainder of her labs are relatively unremarkable. REVIEW OF SYSTEMS 12 point review of systems negative unless noted in HPI PHYSICAL EXAM GENERAL APPEARANCE: The patient is awake, alert, and oriented, in no acute cardiopulmonary distress. NEUROLOGICAL: Cranial nerves II-XII grossly intact. Motor is 5/5 in bilateral upper and lower extremities proximal to distal. No sensory deficits. HEENT: Face is symmetric. Pupils are equal and reactive. Extraocular movements are intact. NECK: Supple. No JVD. No thyromegaly. No submental, submandibular, pre- /postauricular, occipital or supraclavicular lymphadenopathy. CHEST: Normal chest expansion. No Telemetry. LUNGS: Absence of any rales, rhonchi or any wheezing. CARDIOVASCULAR: Regular. S1 and S2 normal. No appreciable rubs, murmurs or gallops. ABDOMEN: Soft, nontender, and nondistended. There is no rebound, voluntary guarding, or rigidity. : Deferred. No Jackson. EXTREMITIES: Non-edematous and not cyanotic. No clubbing. Good capillary refill. SKIN: No skin breakdown. Vital Signs (last 8hr) Date Time Temp Pulse Resp B/P (MAP) Pulse Ox O2 Delivery O2 Flow Rate FiO2 08/13/24 12:00 98.4 89 18 121/68 99 Room Air 08/13/24 08:00 99.1 92 20 114/70 99 Room Air 08/13/24 08:00 99 Room Air* 0 21 LABS: Laboratory: Test 08/13/24 15:19 08/13/24 06:06 Range/Units Whole Blood Glucose 172 H 70-110 MG/DL White Blood Count 13.3 H 4.8-10.8 K/uL Red Blood Count 3.83 L 4.00-5.50 MIL/uL Hemoglobin 8.9 L 12.0-16.0 g/dL Hematocrit 29.6 L 36-48 % Mean Corpuscular Volume 77.3 L 79-99 fL Mean Corpuscular Hemoglobin 23.2 L 27.0-33.0 pg Mean Corpuscular Hemoglobin Concent 30.1 L 32.0-36.0 g/dL Red Cell Distribution Width 16.1 H 11.0-15.5 % Platelet Count 470 H 130-400 K/uL Mean Platelet Volume 8.5 7.5-10.5 fL Immature Granulocyte % (Auto) 0.5 0-1 % Neutrophils (%) (Auto) 80.1 H 40.0-77.0 % Lymphocytes (%) (Auto) 9.7 L 21.0-51.0 % Monocytes (%) (Auto) 5.6 3.0-13.0 % Eosinophils (%) (Auto) 3.8 0.0-8.0 % Basophils (%) (Auto) 0.3 0.0-5.0 % Neutrophils # (Auto) 10.6 H 1.8-7.7 K/uL Lymphocytes # (Auto) 1.3 1.0-4.8 K/uL Monocytes # (Auto) 0.7 0.1-1.0 K/uL Eosinophils # (Auto) 0.50 0.00-0.70 K/uL Basophils # (Auto) 0.04 0.00-0.20 K/uL Absolute Immature Granulocyte (auto 0.06 0-1 K/uL Nucleated Red Blood Cells 0.0 0.0-0.19 % White Cell Morphology Comment See comments Sodium Level 136 136-145 mmol/L Potassium Level 4.0 3.5-5.1 mmol/L Chloride Level 101 101-111 mmol/L Carbon Dioxide Level 26 21-32 mmol/L Blood Urea Nitrogen 7 7-18 mg/dL Creatinine 0.8 0.5-1.0 mg/dL Glomerular Filtration Rate Calc 90 >90 mL/min Random Glucose 150 H 70-105 mg/dL Total Calcium 8.6 8.5-10.1 mg/dL Phosphorus Level 3.8 2.5-4.9 mg/dL Magnesium Level 1.90 1.80-2.40 mg/dL Current Medications Medications (Trade) Dose Ordered Sig/Lizette Route PRN Reason Start Time Stop Time Status Last Admin Dose Admin Acetaminophen (TYLenol 325MG TAB) 650 mg Q4H PRN PO MILD PAIN (1-3) 08/08/24 22:30 09/07/24 22:29 08/13/24 08:26 650 MG Acetaminophen (TYLenol 325MG TAB) 650 mg Q6H PRN PO TEMPERATURE GREATER THAN 101.5 08/08/24 22:30 09/07/24 22:29 Dextrose (D50w) 50 ml AD PRN IV HYPOGLYCEMIA PROTOCOL 08/08/24 22:30 08/11/24 07:30 DC Dextrose (D50w) 50 ml AD PRN IV HYPOGLYCEMIA PROTOCOL 08/08/24 23:00 09/07/24 22:59 Enoxaparin Sodium (Lovenox) 40 mg DAILY SQ 08/12/24 09:00 09/11/24 08:59 08/13/24 08:27 40 MG Famotidine (Pepcid 20mg Vial) 20 mg BID IV 08/09/24 09:00 09/08/24 08:59 08/13/24 08:27 20 MG Glucagon (Glucagon 1mg Kit) 1 mg AD PRN IM HYPOGLYCEMIA PROTOCOL 08/08/24 22:30 08/11/24 07:30 DC Glucagon (Glucagon 1mg Kit) 1 mg AD PRN IM HYPOGLYCEMIA PROTOCOL 08/08/24 23:00 09/07/24 22:59 Insulin Human Regular (humuLIN R 100 UNIT/ML 3ML) INSULIN SLIDING SCAL... ACHS SQ 08/09/24 07:30 09/08/24 07:29 08/12/24 22:27 4 UNIT Magnesium Sulfate 50 ml @ 0 mls/hr PROTOCOL PRN IV OTHER [SEE ORDER COMMENTS] 08/08/24 23:00 09/07/24 22:59 08/10/24 08:17 50 MLS/HR Ondansetron HCl (zoFRAN 4MG INJ) 4 mg Q6H PRN IV NAUSEA/VOMITING 08/08/24 22:30 09/07/24 22:29 Piperacillin Sod/ Tazobactam Sod 50 ml @ 200 mls/hr STAT STAT IVPB 08/08/24 19:19 08/08/24 19:33 DC 08/08/24 19:52 200 MLS/HR Piperacillin Sod/ Tazobactam Sod (Zosyn 3.375gm+NS 50ml) 3.375 gm Q8H IV 08/09/24 04:00 08/19/24 03:59 08/13/24 12:08 3.375 GM Potassium Chloride 100 ml @ 100 mls/hr AD PRN IV POTASSIUM PROTOCOL 08/08/24 23:00 09/07/24 22:59 08/11/24 05:34 100 MLS/HR Potassium Chloride (K-Dur/Klor-Con 20meq) 20 meq AD PRN PO POTASSIUM PROTOCOL 08/08/24 23:00 09/07/24 22:59 08/12/24 09:42 20 MEQ Potassium Chloride (KCl 10% Elixir 20meq/15ml) 20 meq AD PRN PO POTASSIUM PROTOCOL 08/08/24 23:00 09/07/24 22:59 08/10/24 08:15 20 MEQ Sodium Chloride 1,000 ml @ 100 mls/hr Q10H IV 08/08/24 22:30 09/07/24 22:29 08/13/24 12:08 100 MLS/HR DIAGNOSTICS / RADIOLOGY: [ ] ASSESSMENT: Suspected Right renal mass per CT, ruled out POA Right renal jassi-nephric abscess Acute urinary tract infection POA Sirs with organ dysfunction POA Chronic anemia POA Acute thrombocytosis POA Electrolyte derangement POA Hyperglycemia denies history of diabetes POA Protein calorie malnutrition POA Morbid obesity POA PLAN: Continue on consistent carb diet Continue patient on Zosyn IV Q 8 hours for empiric coverage Continue on Famotidine 20 mg IV bid for GI prophylaxis Replace electrolytes as needed per protocol Continue on insulin sliding scale AC & HS with hypoglycemia protocol Follow-up blood culture and urine culture result Urology consulted, appreciate recommendations Further orders to follow depending on above results Disposition: Pending cultures/sensitivities of aspirate DILLON STEPHEN MD Aug 13, 2024 15:51
[2024-08-13 16:30] LABS: % IRON SATURATION 4.5 % (22-44)
[2024-08-14] VITALS: BP 136/75; PULSE 97; RESP 20; TEMP 98.4
[2024-08-14 04:59] LABS: CREATININE 0.9 mg/dL (0.5-1.0); POTASSIUM 3.4 mmol/L (3.5-5.1)
[2024-08-14 05:09] LABS: BASOPHILS # (AUTO) 0.03 K/uL (0.00-0.20); BASOPHILS % (AUTO) 0.3 % (0.0-5.0); HEMATOCRIT 28.5 % (36-48); IMMATURE GRANULOCYTE ABSOLUTE 0.05 K/uL (0-1); LYMPHOCYTES # (AUTO) 1.3 K/uL (1.0-4.8); LYMPHOCYTES % (AUTO) 13.3 % (21.0-51.0); MEAN CORPUSCULAR HEMOGLOBIN 23.5 pg (27.0-33.0); MEAN CORPUSCULAR HGB CONC 30.5 g/dL (32.0-36.0); MEAN CORPUSCULAR VOLUME 76.8 fL (79-99); MONOCYTES # (AUTO) 0.4 K/uL (0.1-1.0); MONOCYTES % (AUTO) 4.4 % (3.0-13.0); NEUTROPHILS # (AUTO) 7.8 K/uL (1.8-7.7); NEUTROPHILS % (AUTO) 77.5 % (40.0-77.0); PLATELET COUNT (AUTO) 485 K/uL (130-400); RED BLOOD CELL COUNT(AUTO) 3.71 MIL/uL (4.00-5.50); RED CELL DISTRIBUTION WIDTH 15.9 % (11.0-15.5)
[2024-08-14 08:00] VITALS: BP 131/74; PULSE 90; RESP 20; TEMP 98.2; O2SAT 96
[2024-08-14 12:00] VITALS: BP 133/83; PULSE 95; RESP 20; TEMP 98.1
[2024-08-14] MEDS ORDERED: LEVO750T90 PO (14:35)
== END 2024-08-14 16:30 | disposition home or self-care (01) | DRG 371 ==
LOC: EDH 18:21 → EDHIP 18:22 → 3AH 23:51
PROVIDERS: ADMIT Internal Medicine; ATTEND Internal Medicine
PROC: 0W9H30Z Drainage of Retroperitoneum with Drainage Device, Percutaneous Approach (ICD-10-PCS; principal; 2024-08-11)
DX: K68.19 Other retroperitoneal abscess (principal); N15.1 Renal and perinephric abscess; R65.11 Systemic inflammatory response syndrome (SIRS) of non-infectious origin with acute organ dysfunction; E46 Unspecified protein-calorie malnutrition; N39.0 Urinary tract infection, site not specified; N28.89 Other specified disorders of kidney and ureter; D64.9 Anemia, unspecified; D75.839 Thrombocytosis, unspecified; E66.01 Morbid (severe) obesity due to excess calories; H54.62 Unqualified visual loss, left eye, normal vision right eye; Z82.3 Family history of stroke; Z82.49 Family history of ischemic heart disease and other diseases of the circulatory system; Z82.5 Family history of asthma and other chronic lower respiratory diseases; Z83.3 Family history of diabetes mellitus; Z90.49 Acquired absence of other specified parts of digestive tract; Z68.34 Body mass index [BMI] 34.0-34.9, adult
CPT/HCPCS: 10030; 36415; 71045; 74150; 74177; 76942; 80048; 80053; 80076; 81001; 82270; 82550; 82948; 83036; 83540; 83550; 83605; 83735; 83880; 84100; 84145; 84484; 84703; 85025; 85610; 85730; 87040; 87071; 87086; 87186; 87205; 87426; 87804; 93005; 99152; 99153; G0378; J1650; J1815; J2250; J2543; J3010; J3475; J3480; J3490; J7030; Q9967; C1729; C1769; G0500

== ENCOUNTER 2024-08-30 16:41 | Emergency (ER) | payer SELFPAY ==
[~2024-08-30] VITALS: Ht 162.6 cm; Wt 91.2 kg
[~2024-08-30 16:41] MED LIST changes: -ALBUHFA IH; -BENZ-39 PO; -IBUP-2077 PO; -LEVO750T68 PO; +LEVO750T90 PO; -METH4TAB3 PO; -PREN1TAB89 PO
[2024-08-30] MEDS ORDERED: LACTATED RINGERS 1000ML IV STA (17:12)
--- NOTE | 2024-08-30 17:48 | ERN ---
General Chief Complaint: Other Problems Stated Complaint: REMOVAL OF NEPHROSTOMY TUBE Time Seen by MD: 17:02 Source: patient History of Present Illness Initial Comments Patient is a 49-year-old female with no past medical history who was admitted to [facility] on 08/08/2024 with a right perinephric abscess. Given the proximity of the abscess to right kidney a urology consult was obtained who recommended a CT guided drainage of the abscess through IR. It is not clear if the abscess originated from the right kidney. Cultures grew out Enterobacter cloaca which could have a GI source or a gynecological source in addition to a urine source. The patient was discharged from the hospital on a five day course of ciprofloxacin. She comes into the emergency room today to have the drainage tube removed as she could not get it removed at the urologist's office. She states there has been minimal drainage from the catheter over the last two days. Allergies: Coded Allergies: No Known Allergies (Unverified Allergy, Unknown, 08/13/15) Home Meds Active Scripts Levofloxacin (Levofloxacin) 750 Mg Tablet, 1 TAB PO DAILY for 7 Days, #5 TAB 0 Refills Prov:DILLON STEPHEN MD 08/14/24 Past Medical History Past Medical History: No Pertinent History Past Surgical History: Cholecystectomy Surgical History Other: NEPHROSTOMY TUBE Female( History) History: Not Applicable : 7 Para: 6 Aborts: 1 ROS Dictation Patient states she has no systemic symptoms of an infection no fever no chills no weakness. Constitutional: (-) chills, (-) diaphoresis, (-) fever, (-) malaise, (-) weakness, (-) other documentation EENTM: (-) eye pain, (-) blurred vision, (-) tearing, (-) double vision, (-) ear pain, (-) ear discharge, (-) nose pain, (-) nose congestion, (-) throat pain, (-) Throat swelling, (-) mouth pain, (-) tooth pain, (-) mouth swelling, (-) other documentation Respiratory: (-) cough, (-) orthopnea, (-) short of breath, (-) stridor, (-) wheezing, (-) other documentation Cardiovascular: (-) chest pain, (-) edema, (-) palpitations, (-) syncope, (-) dyspnea on exertion, (-) other documentation Gastrointestinal/Abdominal: (-) nausea, (-) vomiting, (-) diarrhea, (-) abdominal pain, (-) abdominal distention, (-) constipation, (-) rectal bleeding, (-) dark stool/melena, (-) other documentation Genitourinary: (-) vaginal discharge, (-) vaginal bleeding, (-) dysuria, (-) frequency, (-) hematuria, (-) pain, (-) other documentation Musculoskeletal: (-) Neck pain, (-) back pain, (-) Flank Pain, (-) joint pain, (-) joint swelling, (-) muscle pain, (-) muscle stiffness, (-) gout, (-) other documentation Skin: (-) laceration, (-) contusion, (-) abrasion, (-) abscess, (-) rash, (-) change in color, (-) change in hair, (-) change in nails, (-) diaphoresis, (-) dryness, (-) other documentation Neuro: (-) altered mental status, (-) headache, (-) syncope, (-) paralysis, (-) numbness, (-) seizure, (-) pre-existing deficit, (-) tremors, (-) weakness, (-) dizziness, (-) slurred speech, (-) vertigo, (-) other documentation Physical Exam General Appearance: (+) no apparent distress Orientation: (+) alert, (+) oriented x 3 Head/Face Trauma: No Eye: bilateral eye normal inspection, bilateral eye PERRL, bilateral eye EOMI Ear, Nose, Throat: (+) hearing grossly normal, (+) normal ENT inspection Neck: (+) normal inspection, (+) supple Respiratory: (+) chest non-tender, (+) lungs clear, (+) well ventilated Heart: (+) regular, (+) no gallop Vascular: (+) no edema, (+) normal peripheral pulse Gastrointestinal: (+) soft, (+) bowel sound present Back Comment Patient has a pigtail catheter coming out of her right back. There was minimal purulent drainage in the suction bulb. Results Laboratory and Microbiology Lab and Micro Result Laboratory Tests Test 08/30/24 18:13 White Blood Count 7.3 K/uL (4.8-10.8) Red Blood Count 4.45 MIL/uL (4.00-5.50) Hemoglobin 10.3 g/dL (12.0-16.0) L Hematocrit 34.5 % (36-48) L Mean Corpuscular Volume 77.5 fL (79-99) L Mean Corpuscular Hemoglobin 23.1 pg (27.0-33.0) L Mean Corpuscular Hemoglobin Concent 29.9 g/dL (32.0-36.0) L Red Cell Distribution Width 16.3 % (11.0-15.5) H Platelet Count 421 K/uL (130-400) H Mean Platelet Volume 8.9 fL (7.5-10.5) Immature Granulocyte % (Auto) 0.4 % (0-1) Neutrophils (%) (Auto) 65.3 % (40.0-77.0) Lymphocytes (%) (Auto) 22.4 % (21.0-51.0) Monocytes (%) (Auto) 5.1 % (3.0-13.0) Eosinophils (%) (Auto) 6.1 % (0.0-8.0) Basophils (%) (Auto) 0.7 % (0.0-5.0) Neutrophils # (Auto) 4.8 K/uL (1.8-7.7) Lymphocytes # (Auto) 1.6 K/uL (1.0-4.8) Monocytes # (Auto) 0.4 K/uL (0.1-1.0) Eosinophils # (Auto) 0.44 K/uL (0.00-0.70) Basophils # (Auto) 0.05 K/uL (0.00-0.20) Absolute Immature Granulocyte (auto 0.03 K/uL (0-1) Nucleated Red Blood Cells 0.0 % (0.0-0.19) Red Blood Cell Morphology See comments MDM Do a quick CBC and procalcitonin and if these are normal I have remove the drainage tube. I have already called Dr. Dumas's answering service for his opinion. I have reviewed the patient's chart and the patient had a perinephric abscess on the right side posterior to the kidney. During that hospital stay, Dr. Dumas recommended drainage of the abscess. He made no comment as to whether it was connected to the urinary tract system. The drainage tube is not a nephrostomy tube it is a tube placed by interventional radiologist. I removed the pigtail catheter without any complications. When I took the pigtail catheter out I noticed a very large carbuncle inferior to the insertion site of the tube. Therefore I performed a quick incision and drainage of that cavity and repacked it with Nu Gauze. I will discharge the patient with right oral antibiotics and pain medications. ED Course Orders Procedure Category Date Status Time 12 Lead Ekg Tracing- EKG 08/30/24 Logged Technical 17:12 Cbc With Differential LAB 08/30/24 Complete 17:49 Urinalysis Profile LAB 08/30/24 Logged 17:49 Lidocaine 2%-Epi PHA 08/30/24 Complete 1:200,000 (Lidocaine 18:30 Lidocaine Hcl 1% 20ml PHA 08/30/24 Complete Vial (Lidocaine Hc 18:30 Procalcitonin LAB 08/30/24 Logged 18:28 Current Medications Medications (Trade) Dose Ordered Sig/Lizette Route PRN Reason Start Time Stop Time Status Last Admin Dose Admin Lactated Ringer's (Lactated Ringers 1000ml) 1,000 ml BOLUS STAT IV 08/30/24 17:12 08/30/24 17:19 Cancel Lidocaine HCl (Lidocaine HCl 1% 20ml Vial) 10 ml ONCE ONCE INJ 08/30/24 18:30 08/30/24 18:31 DC Lidocaine/ Epinephrine (Lidocaine 2%-Epi 1:200,000) 20 ml ONCE IJ 08/30/24 18:30 08/30/24 18:17 DC Vital Signs Date Time Temp Pulse Resp B/P (MAP) Pulse Ox O2 Delivery O2 Flow Rate FiO2 08/30/24 16:43 99.1 96 18 140/89 98 Room Air 0 DX & DISP Disposition: Discharge Departure Impression: Primary Impression: Carbuncle and furuncle of other specified sites Condition: Stable Scripts Oxycodone HCl (Oxycodone HCl) 10 Mg Tablet 1 TAB PO QIDP PRN for pain for 5 Days, #20 TAB 0 Refills Prov: MENDEZ BERRIOS MD 08/30/24 Amoxicillin/Potassium Clav (Augmentin 500-125 Tablet) 500 Mg-125 Mg Tablet 1 TAB PO BID for 10 Days, #20 TAB 0 Refills Prov: MENDEZ BERRIOS MD 08/30/24 Additional Instructions: I explained to the patient's daughter how to do the wound care. The patient will take pain medication if she needs it, then take a shower and in the shower she can remove the Nu Gauze packing. After the shower the Nu Gauze packing can be placed into the wound but not too tightly just enough to keep the top of the wound open. Change the dressing once or twice a day. No swimming no hot tubs no saunas no Jacuzzi he has no soaking baths. Showers are okay. Please return to the emergency room if you have worsening pain and drainage from the site or if you start to have fevers chills and other signs of a systemic infection. Referrals: SELF,REFERRAL (PCP) MENDEZ BERRIOS MD August 30, 2024 17:48
[2024-08-30 18:21] LABS: BASOPHILS # (AUTO) 0.05 K/uL (0.00-0.20); BASOPHILS % (AUTO) 0.7 % (0.0-5.0); EOSINOPHILS # (AUTO) 0.44 K/uL (0.00-0.70); EOSINOPHILS % (AUTO) 6.1 % (0.0-8.0); HEMATOCRIT 34.5 % (36-48); IMMATURE GRANULOCYTE ABSOLUTE 0.03 K/uL (0-1); LYMPHOCYTES # (AUTO) 1.6 K/uL (1.0-4.8); LYMPHOCYTES % (AUTO) 22.4 % (21.0-51.0); MEAN CORPUSCULAR HEMOGLOBIN 23.1 pg (27.0-33.0); MEAN CORPUSCULAR HGB CONC 29.9 g/dL (32.0-36.0); MEAN CORPUSCULAR VOLUME 77.5 fL (79-99); MONOCYTES # (AUTO) 0.4 K/uL (0.1-1.0); MONOCYTES % (AUTO) 5.1 % (3.0-13.0); NEUTROPHILS # (AUTO) 4.8 K/uL (1.8-7.7); NEUTROPHILS % (AUTO) 65.3 % (40.0-77.0); PLATELET COUNT (AUTO) 421 K/uL (130-400); RED BLOOD CELL COUNT(AUTO) 4.45 MIL/uL (4.00-5.50); RED CELL DISTRIBUTION WIDTH 16.3 % (11.0-15.5); WHITE BLOOD COUNT (AUTO) 7.3 K/uL (4.8-10.8)
[2024-08-30] MEDS ORDERED: LIDOCAINE 2%-EPI 1:200,000 20 ML VIAL IJ SCH (18:30)
[2024-08-30] MEDS: LIDOCAINE HCL 1% 20 ML VIAL INJ ONE (18:58)
[2024-08-30] MEDS ORDERED: OXYC10TA48 PO (18:59)
[2024-08-30] MEDS ORDERED: AMOX-426 PO (18:59)
[2024-08-30 20:28] VITALS: BP 132/82; PULSE 80; RESP 20; TEMP 98; O2SAT 97
== END 2024-08-30 20:37 | disposition home or self-care (01) ==
LOC: EDH 16:41
DX: L02.92 Furuncle, unspecified (principal); L02.93 Carbuncle, unspecified; Z90.49 Acquired absence of other specified parts of digestive tract
CPT/HCPCS: 10060; 36415; 84145; 85025; 99284